=== PATIENT | male | born 1965 | race Caucasian/White ===

== ENCOUNTER 2017-09-10 19:16 | Inpatient (IN) ==
[2017-09-10] MEDS ORDERED: ALBUTEROL/IPRATROPIUM 3 ML NEB RESP TX STA (19:51)
[2017-09-10 21:02] LABS: Basophils # 0.1 10*3/uL (0.0-0.2); Basophils % 0.4 % (0.0-0.8); Eosinophils % 0.3 % (0.00-10.9); Hematocrit 36.2 VOL% (42.0-52.0); Hemoglobin 12.1 GM/DL (14.0-18.0); Immature Granulocytes Absolute 0.15 #; Lymphocytes # 1.5 10*3/uL (1.4-4.0); Lymphocytes % 9.5 % (21.2-54.2); Mean Corpuscular HGB Conc 33.4 GM/DL (32-36); Mean Corpuscular Hemoglobin 30 PG (27-34); Mean Corpuscular Volume 89.2 FL (87-102); Monocytes # 1.1 10*3/uL (0.11-0.8); Monocytes % 6.8 % (1.7-12.7); Neutrophils # 12.8 10*3/uL (1.4-7.4); Platelet Count 322 T/CUMM (130-400); Red Blood Count 4.06 MC/CUMM (3.8-5.5); Red Cell Distribution Width 16.9 % (9.3-17.3); White Blood Count 15.6 T/CUMM (4-12)
[2017-09-10] MEDS ORDERED: CLINDAMYCIN INJ 900 MG in PREMIX 1 EACH IV STA (22:01)
[2017-09-10] MEDS ORDERED: PHYTONADIONE 10 MG/1 ML AMP IV STA (22:23)
[2017-09-10 22:35] LABS: Alanine Aminotransferase 33 U/L (16-61); Albumin 2.7 G/DL (3.4-5.0); Alkaline Phosphatase 121 U/L (45-117); Aspartate Amino Transferase 57 U/L (0-37); Blood Urea Nitrogen 64 MG/DL (7-18); Calcium 7.4 MG/DL (8.5-10.1); Glucose 240 MG/DL (74-106); Osmolality,Calculated 285.8 MOS/KG (273-304); Potassium 4.3 MMOL/L (3.5-5.1); Sodium 130 MMOL/L (136-145); Total Protein 7.6 G/DL (6.4-8.3); Troponin I Only < 0.015 NG/ML (0.00-0.045)
[2017-09-10] MEDS ORDERED: PHYTONADIONE 10 MG/1 ML AMP ONE (23:01)
[2017-09-10] MEDS ORDERED: CLINDAMYCIN 600 MG/4 ML VIAL ONE (23:02)
[2017-09-10] MEDS ORDERED: CLINDAMYCIN INJ 50 ML IV ONE (23:35)
[2017-09-11] MEDS ORDERED: ALBUTEROL/IPRATROPIUM 3 ML NEB RESP TX PRN (01:30)
[2017-09-11] MEDS ORDERED: GLUCAGON 1 MG VIAL IM PRN (01:36)
[2017-09-11] MEDS ORDERED: DEXTROSE 50% 25 GM/50 ML VIAL IV PRN (01:36)
[2017-09-11 03:52] LABS: Apearance,Urine CLOUDY (Clear); Bacteria,Urine Few /HPF (Few); Bilirubin,Urine Negative (Negative); Blood, Urine Large mg/dL (Negative); Glucose,Urine (UA) Negative (Negative); Ketones,Urine Negative (Negative); Mucus,Urine Few /LPF (Occasional); Nitrite,Urine Negative (Negative); Protein,Urine 100 MG/DL; RBC,Urine 611 /HPF (0-4); Squamous Epithelial Cell,Urine Occasional /HPF (0-10); Urine Color Amber (Yellow); Urine Specific Gravity 1.014 (1.001-1.035); WBC,Urine 1153 /HPF (0-6)
[2017-09-11 03:54] LABS: Basophils # 0.1 10*3/uL (0.0-0.2); Basophils % 0.4 % (0.0-0.8); Eosinophils # 0.1 10*3/uL (0.0-0.87); Eosinophils % 0.7 % (0.00-10.9); Hematocrit 34.1 VOL% (42.0-52.0); Hemoglobin 11.4 GM/DL (14.0-18.0); Immature Granulocytes % 0.8 %; Immature Granulocytes Absolute 0.12 #; Lymphocytes # 1.5 10*3/uL (1.4-4.0); Lymphocytes % 10.3 % (21.2-54.2); Mean Corpuscular HGB Conc 33.4 GM/DL (32-36); Mean Corpuscular Hemoglobin 30 PG (27-34); Mean Corpuscular Volume 88.6 FL (87-102); Mean Platelet Volume 10.2 FL (9.6-12.0); Monocytes % 6.4 % (1.7-12.7); Neutrophils # 12.2 10*3/uL (1.4-7.4); Neutrophils % 81.4 % (38.7-73.9); Platelet Count 293 T/CUMM (130-400); Red Blood Count 3.85 MC/CUMM (3.8-5.5); Red Cell Distribution Width 17.1 % (9.3-17.3); White Blood Count 14.9 T/CUMM (4-12)
[2017-09-11 04:17] LABS: PT Patient Result 30.6 SECS; Partial Thromboplastin Time 48.2 SECS (0-40)
[2017-09-11 04:20] LABS: Albumin 2.3 G/DL (3.4-5.0); Bilirubin,Total 0.9 MG/DL (0.2-1.0); Calcium 7.1 MG/DL (8.5-10.1); Osmolality,Calculated 283.8 MOS/KG (273-304); Potassium 4.2 MMOL/L (3.5-5.1); Total Protein 7.1 G/DL (6.4-8.3)
[2017-09-11] MEDS ORDERED: SODIUM BICARB INJ 150 MEQ in STERILE WATER INJ 1,000 ML IV SCH (06:30)
[2017-09-11] MEDS ORDERED: VANCOMYCIN INJ 2,500 MG in SODIUM CHLORIDE 0.9% 500 ML IV ONE (06:30)
[2017-09-11] MEDS ORDERED: INSULIN LISPRO 100 UNIT/ML ONE (08:10)
[2017-09-11] MEDS: INSULIN LISPRO 100 UNIT/ML SUBCUT SCH ×4 (08:13→20:49)
[2017-09-11] MEDS ORDERED: cefTRIAXone 1,000 MG VIAL ONE (09:52)
[2017-09-11] MEDS ORDERED: amLODIPine 5 MG TABLET ONE (09:52)
[2017-09-11] MEDS: cefTRIAXone 1,000 MG in SYRINGE 1 EACH IV SCH (10:02)
[2017-09-11] MEDS: amLODIPine 10 MG TABLET PO SCH (10:03)
[2017-09-11] MEDS: LIDOCAINE 5% PATCH TRANSDERM SCH (10:06)
[2017-09-11] MEDS ORDERED: VANCOMYCIN INJ 3,000 MG in SODIUM CHLORIDE 0.9% 500 ML IV PRN (11:50)
[2017-09-11] MEDS: TAMSULOSIN 0.4 MG CAPSULE PO SCH (20:49)
[2017-09-12 05:30] LABS: Basophils # 0.1 10*3/uL (0.0-0.2); Basophils % 0.7 % (0.0-0.8); Eosinophils # 0.1 10*3/uL (0.0-0.87); Eosinophils % 0.8 % (0.00-10.9); Hematocrit 33.5 VOL% (42.0-52.0); Hemoglobin 10.9 GM/DL (14.0-18.0); Immature Granulocytes % 0.9 %; Immature Granulocytes Absolute 0.08 #; Lymphocytes # 0.8 10*3/uL (1.4-4.0); Lymphocytes % 9.3 % (21.2-54.2); Mean Corpuscular HGB Conc 32.5 GM/DL (32-36); Mean Corpuscular Hemoglobin 30 PG (27-34); Mean Corpuscular Volume 90.5 FL (87-102); Mean Platelet Volume 10.3 FL (9.6-12.0); Monocytes # 0.7 10*3/uL (0.11-0.8); Monocytes % 8.2 % (1.7-12.7); Neutrophils # 7.1 10*3/uL (1.4-7.4); Neutrophils % 80.1 % (38.7-73.9); Platelet Count 255 T/CUMM (130-400); Red Cell Distribution Width 17.1 % (9.3-17.3); White Blood Count 8.8 T/CUMM (4-12)
[2017-09-12 06:17] LABS: Calcium 6.5 MG/DL (8.5-10.1); Osmolality,Calculated 295.1 MOS/KG (273-304); Potassium 4.1 MMOL/L (3.5-5.1)
[2017-09-12] MEDS ORDERED: VANCOMYCIN INJ 3,000 MG in SODIUM CHLORIDE 0.9% 500 ML IV ONE (09:00)
[2017-09-12] MEDS: amLODIPine 10 MG TABLET PO SCH (09:21)
[2017-09-12] MEDS: cefTRIAXone 1,000 MG in SYRINGE 1 EACH IV SCH (09:21)
[2017-09-12] MEDS: LIDOCAINE 5% PATCH TRANSDERM SCH (09:22)
[2017-09-12] MEDS: INSULIN LISPRO 100 UNIT/ML SUBCUT SCH ×4 (09:23→21:47)
[2017-09-12] MEDS ORDERED: SKIN HEALING OINT (AQUAPHOR) 50 GM TUBE TOP PRN (14:57)
[2017-09-12] MEDS: GENTAMICIN 0.1% CREAM 15 GM TUBE TOP SCH ×2 (14:58→20:49)
[2017-09-12] MEDS ORDERED: MEROPENEM 1,000 MG in SODIUM CHLORIDE 0.9% 100 ML IV SCH (15:00)
[2017-09-12] MEDS: TAMSULOSIN 0.4 MG CAPSULE PO SCH (20:36)
[2017-09-13 05:41] LABS: Calcium 6.9 MG/DL (8.5-10.1); Osmolality,Calculated 290.1 MOS/KG (273-304); Potassium 3.6 MMOL/L (3.5-5.1)
[2017-09-13 06:50] LABS: Basophils % 0.5 % (0.0-0.8); Eosinophils # 0.2 10*3/uL (0.0-0.87); Eosinophils % 2.5 % (0.00-10.9); Hematocrit 31.3 VOL% (42.0-52.0); Hemoglobin 10.7 GM/DL (14.0-18.0); Immature Granulocytes Absolute 0.15 #; Lymphocytes # 1.1 10*3/uL (1.4-4.0); Lymphocytes % 14.5 % (21.2-54.2); Mean Corpuscular HGB Conc 34.2 GM/DL (32-36); Mean Corpuscular Hemoglobin 30 PG (27-34); Mean Corpuscular Volume 88.2 FL (87-102); Monocytes # 1.1 10*3/uL (0.11-0.8); Monocytes % 13.9 % (1.7-12.7); Neutrophils % 66.6 % (38.7-73.9); Platelet Count 256 T/CUMM (130-400); Red Blood Count 3.55 MC/CUMM (3.8-5.5); Red Cell Distribution Width 16.9 % (9.3-17.3); White Blood Count 7.5 T/CUMM (4-12)
[2017-09-13] MEDS: amLODIPine 10 MG TABLET PO SCH (09:18)
[2017-09-13] MEDS: LIDOCAINE 5% PATCH TRANSDERM SCH (09:20)
[2017-09-13] MEDS: INSULIN LISPRO 100 UNIT/ML SUBCUT SCH ×4 (09:21→20:58)
[2017-09-13] MEDS: GENTAMICIN 0.1% CREAM 15 GM TUBE TOP SCH ×3 (09:28→20:57)
[2017-09-13] MEDS ORDERED: POLYETHYLENE GLYCOL POWDER 17 GM PACK PO PRN (10:32)
[2017-09-13] MEDS: cefTRIAXone 1,000 MG in SYRINGE 1 EACH IV SCH (10:44)
[2017-09-13] MEDS ORDERED: methylPREDNISolone 4 MG TABLET PO SCH (11:00)
[2017-09-13] MEDS: methylPREDNISolone 4 MG TABLET PO SCH ×3 (14:02→20:55)
[2017-09-13] MEDS: TAMSULOSIN 0.4 MG CAPSULE PO SCH (20:55)
[2017-09-14] MEDS: methylPREDNISolone 4 MG TABLET PO SCH ×4 (09:04→21:46)
[2017-09-14] MEDS: amLODIPine 10 MG TABLET PO SCH (09:05)
[2017-09-14] MEDS: glipiZIDE 5 MG TABLET PO SCH (09:05)
[2017-09-14] MEDS: cefTRIAXone 1,000 MG in SYRINGE 1 EACH IV SCH (09:05)
[2017-09-14] MEDS: GENTAMICIN 0.1% CREAM 15 GM TUBE TOP SCH ×3 (09:06→21:48)
[2017-09-14] MEDS: INSULIN LISPRO 100 UNIT/ML SUBCUT SCH ×4 (09:06→21:46)
[2017-09-14] MEDS: LIDOCAINE 5% PATCH TRANSDERM SCH (09:06)
[2017-09-14] MEDS ORDERED: VANCOMYCIN INJ 3,000 MG in SODIUM CHLORIDE 0.9% 500 ML IV ONE (10:00)
[2017-09-14 13:19] LABS: Calcium 7.4 MG/DL (8.5-10.1); Osmolality,Calculated 291.1 MOS/KG (273-304)
[2017-09-14] MEDS: TAMSULOSIN 0.4 MG CAPSULE PO SCH (21:45)
[2017-09-15 04:57] LABS: Apearance,Urine CLEAR (Clear); Bilirubin,Urine Negative (Negative); Blood, Urine Small mg/dL (Negative); Glucose,Urine (UA) >=500 mg/dL (Negative); Ketones,Urine Negative (Negative); Nitrite,Urine Negative (Negative); Protein,Urine Negative; RBC,Urine 2 /HPF (0-4); Urine Color Straw (Yellow); Urine Specific Gravity 1.007 (1.001-1.035); Urine Urobilinogen < 2.0 EU/DL (0.2-1.0); WBC,Urine 6 /HPF (0-6)
[2017-09-15 05:18] LABS: Basophils % 0.5 % (0.0-0.8); Eosinophils % 0.1 % (0.00-10.9); Hematocrit 34.5 VOL% (42.0-52.0); Hemoglobin 11.3 GM/DL (14.0-18.0); Immature Granulocytes % 1.5 %; Immature Granulocytes Absolute 0.12 #; Lymphocytes # 0.8 10*3/uL (1.4-4.0); Lymphocytes % 10.5 % (21.2-54.2); Mean Corpuscular HGB Conc 32.8 GM/DL (32-36); Mean Corpuscular Hemoglobin 29 PG (27-34); Mean Corpuscular Volume 89.1 FL (87-102); Mean Platelet Volume 9.7 FL (9.6-12.0); Monocytes # 0.4 10*3/uL (0.11-0.8); Monocytes % 5.5 % (1.7-12.7); Neutrophils # 6.3 10*3/uL (1.4-7.4); Neutrophils % 81.9 % (38.7-73.9); Platelet Count 314 T/CUMM (130-400); Red Blood Count 3.87 MC/CUMM (3.8-5.5); Red Cell Distribution Width 15.9 % (9.3-17.3); White Blood Count 7.8 T/CUMM (4-12)
[2017-09-15 05:49] LABS: Calcium 7.6 MG/DL (8.5-10.1); Osmolality,Calculated 292.1 MOS/KG (273-304); Potassium 4.5 MMOL/L (3.5-5.1)
[2017-09-15] MEDS: methylPREDNISolone 4 MG TABLET PO SCH ×4 (09:10→20:18)
[2017-09-15] MEDS: glipiZIDE 5 MG TABLET PO SCH (09:10)
[2017-09-15] MEDS: amLODIPine 10 MG TABLET PO SCH (09:10)
[2017-09-15] MEDS: INSULIN LISPRO 100 UNIT/ML SUBCUT SCH ×4 (09:11→20:19)
[2017-09-15] MEDS: LIDOCAINE 5% PATCH TRANSDERM SCH (09:11)
[2017-09-15] MEDS: cefTRIAXone 1,000 MG in SYRINGE 1 EACH IV SCH (09:11)
[2017-09-15] MEDS: GENTAMICIN 0.1% CREAM 15 GM TUBE TOP SCH ×3 (09:36→20:29)
[2017-09-15] MEDS: ONDANSETRON 4 MG/2 ML VIAL IV PRN (20:17)
[2017-09-15] MEDS: TAMSULOSIN 0.4 MG CAPSULE PO SCH (20:19)
[2017-09-16] MEDS: amLODIPine 10 MG TABLET PO SCH (09:23)
[2017-09-16] MEDS: methylPREDNISolone 4 MG TABLET PO SCH ×3 (09:23→21:59)
[2017-09-16] MEDS: GENTAMICIN 0.1% CREAM 15 GM TUBE TOP SCH (09:24)
[2017-09-16] MEDS: LIDOCAINE 5% PATCH TRANSDERM SCH (09:24)
[2017-09-16] MEDS: cefTRIAXone 1,000 MG in SYRINGE 1 EACH IV SCH (09:24)
[2017-09-16 10:27] LABS: INR 1.1; PT Patient Result 11.9 SECS
[2017-09-16] MEDS: INSULIN LISPRO 100 UNIT/ML SUBCUT SCH ×4 (10:56→20:30)
[2017-09-16] MEDS: glipiZIDE 5 MG TABLET PO SCH (11:42)
[2017-09-16] MEDS: ONDANSETRON 4 MG/2 ML VIAL IV PRN ×2 (12:20→17:07)
[2017-09-16] MEDS: hydrALAZINE 20 MG/1 ML VIAL IV PRN (17:17)
[2017-09-16] MEDS: PROMETHAZINE 25 MG/1 ML VIAL IM PRN (21:14)
[2017-09-16] MEDS: WARFARIN 10 MG TABLET PO SCH (21:59)
[2017-09-16] MEDS: TAMSULOSIN 0.4 MG CAPSULE PO SCH (21:59)
[2017-09-17] MEDS: hydrALAZINE 20 MG/1 ML VIAL IV PRN (04:53)
[2017-09-17 08:13] LABS: INR 1.1; PT Patient Result 11.7 SECS
[2017-09-17 08:30] LABS: Calcium 8.2 MG/DL (8.5-10.1); Osmolality,Calculated 285.8 MOS/KG (273-304); Potassium 4.8 MMOL/L (3.5-5.1)
[2017-09-17] MEDS: glipiZIDE 5 MG TABLET PO SCH (08:37)
[2017-09-17] MEDS: amLODIPine 10 MG TABLET PO SCH (08:37)
[2017-09-17] MEDS: methylPREDNISolone 4 MG TABLET PO SCH ×2 (08:37→21:24)
[2017-09-17] MEDS: INSULIN LISPRO 100 UNIT/ML SUBCUT SCH ×4 (08:38→21:24)
[2017-09-17] MEDS: LIDOCAINE 5% PATCH TRANSDERM SCH (08:39)
[2017-09-17] MEDS: cefTRIAXone 1,000 MG in SYRINGE 1 EACH IV SCH (08:40)
[2017-09-17] MEDS: ONDANSETRON 4 MG/2 ML VIAL IV PRN (16:19)
[2017-09-17] MEDS: PROMETHAZINE 25 MG/1 ML VIAL IM PRN (17:21)
[2017-09-17] MEDS: WARFARIN 10 MG TABLET PO SCH (17:21)
[2017-09-17] MEDS: TAMSULOSIN 0.4 MG CAPSULE PO SCH (21:24)
[2017-09-18 06:26] LABS: INR 1.2; PT Patient Result 12.7 SECS
[2017-09-18 06:49] LABS: Calcium 8.3 MG/DL (8.5-10.1); Osmolality,Calculated 284.8 MOS/KG (273-304)
[2017-09-18] MEDS: INSULIN LISPRO 100 UNIT/ML SUBCUT SCH ×3 (07:24→17:26)
[2017-09-18] MEDS: methylPREDNISolone 4 MG TABLET PO SCH (08:31)
[2017-09-18] MEDS: amLODIPine 10 MG TABLET PO SCH (08:32)
[2017-09-18] MEDS: glipiZIDE 5 MG TABLET PO SCH (08:32)
[2017-09-18] MEDS: LIDOCAINE 5% PATCH TRANSDERM SCH (08:33)
[2017-09-18] MEDS: cefTRIAXone 1,000 MG in SYRINGE 1 EACH IV SCH (08:34)
[2017-09-18] MEDS: ONDANSETRON 4 MG/2 ML VIAL IV PRN (09:48)
[2017-09-18 15:57] VITALS: BP 160/85
[2017-09-18] MEDS: WARFARIN 10 MG TABLET PO SCH (17:25)
== END 2017-09-18 19:30 | disposition home health service (06) | DRG 682 ==
LOC: N.ED 19:16 → N.EDINP 09-11 01:24 → SUATTDRO 09-11 01:24 → N.EDINP 09-11 11:48 → N.2E 09-11 11:58
PROVIDERS: ADMIT Internal Medicine; ATTEND Internal Medicine

== ENCOUNTER 2019-02-22 14:00 | Inpatient (IN) ==
[2019-02-22] MEDS ORDERED: HYDROmorphone 2 MG/1 ML VIAL IV STA (14:46)
[2019-02-22] MEDS ORDERED: ONDANSETRON 4 MG/2 ML VIAL IV STA (14:46)
[2019-02-22 18:47] LABS: Basophils # 0.1 10*3/uL (0.0-0.2); Basophils % 0.2 % (0.0-0.8); Hemoglobin 8.4 GM/DL (14.0-18.0); Immature Granulocytes % 1.4 %; Immature Granulocytes Absolute 0.29 #; Lymphocytes # 1.7 10*3/uL (1.4-4.0); Lymphocytes % 8.3 % (21.2-54.2); Mean Corpuscular HGB Conc 33.6 GM/DL (32-36); Mean Corpuscular Volume 96.5 FL (87-102); Mean Platelet Volume 9.7 FL (9.6-12.0); Monocytes % 4.2 % (1.7-12.7); Neutrophils % 85.9 % (38.7-73.9); Platelet Count 462 T/CUMM (130-400); Red Blood Count 2.59 MC/CUMM (3.8-5.5); Red Cell Distribution Width 16.5 % (9.3-17.3); White Blood Count 20.4 T/CUMM (4-12)
[2019-02-22 19:06] LABS: Osmolality,Calculated 328.8 MOS/KG (273-304)
[2019-02-22 19:24] LABS: Partial Thromboplastin Time 71.1 SECS (0-40)
[2019-02-22 19:26] LABS: INR 6.4
[2019-02-22] MEDS ORDERED: SODIUM POLYSTYRENE SULFATE 15 GM/60 ML BOTTLE PO STA (19:27)
[2019-02-22] MEDS ORDERED: PHYTONADIONE 5 MG/5 ML ORAL.SYR PO STA (19:36)
[2019-02-22 21:05] LABS: Apearance,Urine CLOUDY (Clear); Bacteria,Urine Many /HPF (Few); Bilirubin,Urine Negative (Negative); Blood, Urine Large mg/dL (Negative); Glucose,Urine (UA) Negative (Negative); Ketones,Urine 5 mg/dL (Negative); Nitrite,Urine Negative (Negative); Protein,Urine >=500 MG/DL; RBC,Urine 2296 /HPF (0-4); Urine Specific Gravity 1.013 (1.001-1.035); Urine Urobilinogen < 2.0 EU/DL (0.2-1.0); WBC,Urine 301 /HPF (0-6)
[2019-02-22 21:06] LABS: Urine Color Brown (Yellow)
[2019-02-22] MEDS ORDERED: GABAPENTIN 300 MG CAPSULE PO SCH (21:31)
[2019-02-22] MEDS ORDERED: ONDANSETRON 4 MG/2 ML VIAL IM PRN (21:31)
[2019-02-22 21:45] LABS: Anisocytosis 1+; Hypochromasia 1+; Lymphocytes 3 % (20-55); Macrocytosis 1+; Metamyelocytes 1 %; Microcytosis 1+; Segmented Neutrophils 89 % (50-85); Total Cells Counted 100
[2019-02-22 21:46] LABS: Platelet Estimate Increased; Polychromasia 1+
[2019-02-22] MEDS: TAMSULOSIN 0.4 MG CAPSULE PO SCH (21:46)
[2019-02-22] MEDS: FUROSEMIDE 80 MG TABLET PO SCH (21:46)
[2019-02-22] MEDS: SODIUM BICARBONATE 650 MG TABLET PO SCH (21:46)
[2019-02-22] MEDS: MORPHINE 4 MG/1 ML VIAL IV PRN (23:59)
[2019-02-23] MEDS: GENTAMICIN 0.1% CREAM 15 GM TUBE TOP SCH ×4 (00:03→22:05)
[2019-02-23 05:00] LABS: INR 3.7
[2019-02-23 05:05] LABS: PT Patient Result 39.3 SECS
[2019-02-23 05:08] LABS: Basophils # 0.1 10*3/uL (0.0-0.2); Basophils % 0.5 % (0.0-0.8); Eosinophils # 0.1 10*3/uL (0.0-0.87); Eosinophils % 0.6 % (0.00-10.9); Hematocrit 23.7 VOL% (42.0-52.0); Hemoglobin 7.7 GM/DL (14.0-18.0); Immature Granulocytes % 1.6 %; Immature Granulocytes Absolute 0.26 #; Lymphocytes # 2.6 10*3/uL (1.4-4.0); Lymphocytes % 16.3 % (21.2-54.2); Mean Corpuscular HGB Conc 32.5 GM/DL (32-36); Mean Corpuscular Volume 97.1 FL (87-102); Mean Platelet Volume 9.7 FL (9.6-12.0); Monocytes % 6.3 % (1.7-12.7); Neutrophils % 74.7 % (38.7-73.9); Platelet Count 411 T/CUMM (130-400); Red Blood Count 2.44 MC/CUMM (3.8-5.5); Red Cell Distribution Width 16.5 % (9.3-17.3)
[2019-02-23 05:11] LABS: Calcium 7.7 MG/DL (8.5-10.1); Osmolality,Calculated 332.7 MOS/KG (273-304)
[2019-02-23] MEDS: SODIUM BICARBONATE 650 MG TABLET PO SCH ×3 (05:49→22:08)
[2019-02-23] MEDS: MORPHINE 4 MG/1 ML VIAL IV PRN ×2 (05:53→14:41)
[2019-02-23] MEDS ORDERED: PHYTONADIONE 5 MG/5 ML ORAL.SYR PO ONE (09:00)
[2019-02-23] MEDS: FUROSEMIDE 80 MG TABLET PO SCH ×2 (10:37→22:05)
[2019-02-23] MEDS ORDERED: LEVOFLOXACIN INJ 500 MG in PREMIX 1 EACH IV ONE (11:19)
[2019-02-23 11:55] LABS: Hepatitis B Core IgM Quant 0.06 Index; Hepatitis B Surface Ag Quant < 0.10 Index; Hepatitis B Surface Ag Result Negative (Negative); Hepatitis C Virus Ab Quant 0.02 Index; Hepatitis C Virus Ab Result Negative (Negative)
[2019-02-23] MEDS: SODIUM BICARB INJ 150 MEQ in STERILE WATER INJ 1,000 ML IV SCH ×2 (14:48→23:58)
[2019-02-23 17:10] LABS: Hematocrit 21.1 VOL% (42.0-52.0)
[2019-02-23] MEDS: DESITIN 4OZ/NYSTATIN 15 GRAM MIXTURE PASTE TOP SCH ×2 (18:54→22:05)
[2019-02-23] MEDS: GABAPENTIN 300 MG CAPSULE PO SCH (22:04)
[2019-02-23] MEDS: TAMSULOSIN 0.4 MG CAPSULE PO SCH (22:04)
[2019-02-23] MEDS: MORPHINE NALTREXONE PO SCH (22:04)
[2019-02-24] MEDS: MORPHINE 4 MG/1 ML VIAL IV PRN ×4 (01:00→21:10)
[2019-02-24] MEDS: SODIUM BICARBONATE 650 MG TABLET PO SCH ×3 (05:00→21:10)
[2019-02-24 05:38] LABS: Basophils # 0.1 10*3/uL (0.0-0.2); Basophils % 0.5 % (0.0-0.8); Eosinophils # 0.2 10*3/uL (0.0-0.87); Eosinophils % 1.3 % (0.00-10.9); Hematocrit 21.7 VOL% (42.0-52.0); Hemoglobin 7.1 GM/DL (14.0-18.0); Immature Granulocytes % 1.8 %; Immature Granulocytes Absolute 0.27 #; Lymphocytes # 2.7 10*3/uL (1.4-4.0); Lymphocytes % 17.8 % (21.2-54.2); Mean Corpuscular HGB Conc 32.7 GM/DL (32-36); Mean Platelet Volume 9.6 FL (9.6-12.0); Monocytes % 6.3 % (1.7-12.7); Neutrophils % 72.3 % (38.7-73.9); Platelet Count 394 T/CUMM (130-400); Red Blood Count 2.26 MC/CUMM (3.8-5.5); Red Cell Distribution Width 16.4 % (9.3-17.3); White Blood Count 14.9 T/CUMM (4-12)
[2019-02-24 06:16] LABS: Albumin 2.2 G/DL (3.4-5.0); Bilirubin,Total 1.8 MG/DL (0.2-1.0); Calcium 6.8 MG/DL (8.5-10.1); Osmolality,Calculated 325.5 MOS/KG (273-304); Total Protein 7.7 G/DL (6.4-8.3)
[2019-02-24 08:12] LABS: Hematocrit 20.3 VOL% (42.0-52.0); Hemoglobin 6.7 GM/DL (14.0-18.0)
[2019-02-24] MEDS ORDERED: SODIUM CHLORIDE 0.9% 1,000 ML IV PRN (08:38)
[2019-02-24] MEDS: FUROSEMIDE 80 MG TABLET PO SCH ×2 (09:13→21:10)
[2019-02-24] MEDS: GENTAMICIN 0.1% CREAM 15 GM TUBE TOP SCH ×3 (09:33→21:18)
[2019-02-24] MEDS: DESITIN 4OZ/NYSTATIN 15 GRAM MIXTURE PASTE TOP SCH ×2 (09:33→21:17)
[2019-02-24 09:48] LABS: INR 1.1; PT Patient Result 12.3 SECS
[2019-02-24] MEDS ORDERED: ceFAZolin 1,000 MG in SYRINGE 1 EACH IV ONE (10:07)
[2019-02-24] MEDS ORDERED: HEPARIN 5,000 UNIT/1 ML VIAL ONE (12:05)
[2019-02-24] MEDS ORDERED: LIDOCAINE MPF 1% /EPI 30 ML VIAL ONE (12:05)
[2019-02-24] MEDS ORDERED: BUPIVACAINE MPF 0.25% /EPI 30 ML VIAL ONE (12:05)
[2019-02-24] MEDS ORDERED: KETAMINE 500 MG/10 ML VIAL ONE (13:07)
[2019-02-24] MEDS ORDERED: MIDAZOLAM 2 MG/2 ML VIAL ONE (13:07)
[2019-02-24] MEDS ORDERED: HEPARIN 10,000 UNIT/10 ML VIAL IV PRN (16:10)
[2019-02-24 16:22] LABS: Hematocrit 23.3 VOL% (42.0-52.0); Hemoglobin 7.7 GM/DL (14.0-18.0)
[2019-02-24] MEDS: SODIUM BICARB INJ 150 MEQ in STERILE WATER INJ 1,000 ML IV SCH (18:30)
[2019-02-24] MEDS: TAMSULOSIN 0.4 MG CAPSULE PO SCH (21:10)
[2019-02-24] MEDS: GABAPENTIN 300 MG CAPSULE PO SCH (21:10)
[2019-02-24] MEDS: MORPHINE NALTREXONE PO SCH (21:18)
[2019-02-25] MEDS: SODIUM BICARB INJ 150 MEQ in STERILE WATER INJ 1,000 ML IV SCH (03:22)
[2019-02-25 05:45] LABS: Basophils % 0.4 % (0.0-0.8); Eosinophils # 0.2 10*3/uL (0.0-0.87); Eosinophils % 2.4 % (0.00-10.9); Hematocrit 22.9 VOL% (42.0-52.0); Hemoglobin 7.6 GM/DL (14.0-18.0); Immature Granulocytes % 2.5 %; Immature Granulocytes Absolute 0.23 #; Lymphocytes # 1.6 10*3/uL (1.4-4.0); Lymphocytes % 17.6 % (21.2-54.2); Mean Corpuscular HGB Conc 33.2 GM/DL (32-36); Mean Corpuscular Volume 95.4 FL (87-102); Mean Platelet Volume 9.4 FL (9.6-12.0); Monocytes % 6.6 % (1.7-12.7); Neutrophils % 70.5 % (38.7-73.9); Platelet Count 308 T/CUMM (130-400); Red Cell Distribution Width 16.8 % (9.3-17.3); White Blood Count 9.1 T/CUMM (4-12)
[2019-02-25] MEDS: SODIUM BICARBONATE 650 MG TABLET PO SCH (05:49)
[2019-02-25] MEDS: MORPHINE 4 MG/1 ML VIAL IV PRN ×5 (05:49→21:59)
[2019-02-25 05:53] LABS: PT Patient Result 11.1 SECS
[2019-02-25 06:22] LABS: Albumin 1.9 G/DL (3.4-5.0); Bilirubin,Total 0.6 MG/DL (0.2-1.0); Total Protein 7.1 G/DL (6.4-8.3)
[2019-02-25] MEDS: FUROSEMIDE 80 MG TABLET PO SCH ×2 (08:29→21:42)
[2019-02-25] MEDS: DESITIN 4OZ/NYSTATIN 15 GRAM MIXTURE PASTE TOP SCH ×2 (08:48→21:45)
[2019-02-25] MEDS: GENTAMICIN 0.1% CREAM 15 GM TUBE TOP SCH ×3 (08:48→21:45)
[2019-02-25] MEDS ORDERED: SODIUM CHLORIDE 0.9% 1,000 ML IV PRN (15:56)
[2019-02-25 17:47] LABS: Hematocrit 23.2 VOL% (42.0-52.0); Hemoglobin 7.7 GM/DL (14.0-18.0)
[2019-02-25] MEDS: GABAPENTIN 300 MG CAPSULE PO SCH (21:42)
[2019-02-25] MEDS: TAMSULOSIN 0.4 MG CAPSULE PO SCH (21:42)
[2019-02-25] MEDS: MORPHINE NALTREXONE PO SCH (21:45)
[2019-02-26] MEDS: MORPHINE 4 MG/1 ML VIAL IV PRN ×3 (05:46→20:15)
[2019-02-26 08:31] LABS: Basophils % 0.4 % (0.0-0.8); Eosinophils # 0.3 10*3/uL (0.0-0.87); Eosinophils % 3.2 % (0.00-10.9); Hematocrit 26.1 VOL% (42.0-52.0); Hemoglobin 8.6 GM/DL (14.0-18.0); Immature Granulocytes % 4.1 %; Immature Granulocytes Absolute 0.41 #; Lymphocytes # 1.7 10*3/uL (1.4-4.0); Lymphocytes % 16.4 % (21.2-54.2); Mean Corpuscular Volume 95.6 FL (87-102); Mean Platelet Volume 9.6 FL (9.6-12.0); Monocytes % 6.4 % (1.7-12.7); Neutrophils % 69.5 % (38.7-73.9); Platelet Count 306 T/CUMM (130-400); Red Blood Count 2.73 MC/CUMM (3.8-5.5); Red Cell Distribution Width 17.2 % (9.3-17.3); White Blood Count 10.1 T/CUMM (4-12)
[2019-02-26 08:40] LABS: PT Patient Result 10.7 SECS
[2019-02-26 08:51] LABS: Albumin 2.1 G/DL (3.4-5.0); Bilirubin,Total 0.6 MG/DL (0.2-1.0); Calcium 7.5 MG/DL (8.5-10.1); Total Protein 7.3 G/DL (6.4-8.3)
[2019-02-26] MEDS: FUROSEMIDE 80 MG TABLET PO SCH ×2 (09:00→20:11)
[2019-02-26] MEDS: GENTAMICIN 0.1% CREAM 15 GM TUBE TOP SCH ×3 (09:10→20:12)
[2019-02-26] MEDS: DESITIN 4OZ/NYSTATIN 15 GRAM MIXTURE PASTE TOP SCH ×2 (09:10→20:12)
[2019-02-26 12:25] LABS: Hematocrit 26.2 VOL% (42.0-52.0); Hemoglobin 8.3 GM/DL (14.0-18.0)
[2019-02-26] MEDS ORDERED: TUBERCULIN SKIN TEST 0.1 ML SYRINGE INTRADERM ONE (13:04)
[2019-02-26] MEDS: HEPARIN 5,000 UNIT/1 ML VIAL SUBCUT SCH ×2 (15:47→21:19)
[2019-02-26] MEDS: TAMSULOSIN 0.4 MG CAPSULE PO SCH (20:11)
[2019-02-26] MEDS: GABAPENTIN 300 MG CAPSULE PO SCH (20:11)
[2019-02-26] MEDS: MORPHINE NALTREXONE PO SCH (21:19)
[2019-02-27] MEDS: MORPHINE 4 MG/1 ML VIAL IV PRN ×6 (00:21→23:34)
[2019-02-27 05:35] LABS: Basophils # 0.1 10*3/uL (0.0-0.2); Basophils % 0.5 % (0.0-0.8); Eosinophils # 0.4 10*3/uL (0.0-0.87); Eosinophils % 4.2 % (0.00-10.9); Hematocrit 25.9 VOL% (42.0-52.0); Hemoglobin 8.2 GM/DL (14.0-18.0); Immature Granulocytes % 4.2 %; Immature Granulocytes Absolute 0.39 #; Lymphocytes # 1.9 10*3/uL (1.4-4.0); Lymphocytes % 20.7 % (21.2-54.2); Mean Corpuscular HGB Conc 31.7 GM/DL (32-36); Mean Corpuscular Volume 96.6 FL (87-102); Mean Platelet Volume 9.6 FL (9.6-12.0); Monocytes % 8.1 % (1.7-12.7); Neutrophils % 62.3 % (38.7-73.9); Platelet Count 292 T/CUMM (130-400); Red Blood Count 2.68 MC/CUMM (3.8-5.5); Red Cell Distribution Width 16.8 % (9.3-17.3); White Blood Count 9.2 T/CUMM (4-12)
[2019-02-27 05:37] LABS: INR 0.9; PT Patient Result 10.3 SECS
[2019-02-27] MEDS: HEPARIN 5,000 UNIT/1 ML VIAL SUBCUT SCH ×3 (06:02→21:22)
[2019-02-27 06:11] LABS: Albumin 1.9 G/DL (3.4-5.0); Bilirubin,Total 0.4 MG/DL (0.2-1.0); Calcium 7.9 MG/DL (8.5-10.1); Total Protein 6.9 G/DL (6.4-8.3)
[2019-02-27] MEDS: DESITIN 4OZ/NYSTATIN 15 GRAM MIXTURE PASTE TOP SCH ×2 (08:07→21:22)
[2019-02-27] MEDS: GENTAMICIN 0.1% CREAM 15 GM TUBE TOP SCH ×3 (08:07→21:22)
[2019-02-27] MEDS: FUROSEMIDE 80 MG TABLET PO SCH ×2 (08:07→21:20)
[2019-02-27] MEDS ORDERED: DEXTROSE 50% 25 GM/50 ML VIAL IV PRN (12:19)
[2019-02-27] MEDS ORDERED: GLUCAGON 1 MG VIAL IM PRN (12:19)
[2019-02-27] MEDS: METOPROLOL SUCCINATE XL 50 MG TABLET PO SCH (13:01)
[2019-02-27] MEDS: INSULIN LISPRO 100 UNIT/ML SUBCUT SCH ×2 (16:23→21:21)
[2019-02-27] MEDS: cefTRIAXone 2,000 MG in SYRINGE 1 EACH IV SCH (17:09)
[2019-02-27] MEDS: TAMSULOSIN 0.4 MG CAPSULE PO SCH (21:21)
[2019-02-27] MEDS: MORPHINE NALTREXONE PO SCH (21:23)
[2019-02-27] MEDS: GABAPENTIN 300 MG CAPSULE PO SCH (21:23)
[2019-02-28] MEDS: MORPHINE 4 MG/1 ML VIAL IV PRN ×4 (04:28→19:55)
[2019-02-28] MEDS: HEPARIN 5,000 UNIT/1 ML VIAL SUBCUT SCH ×3 (04:32→21:09)
[2019-02-28 05:12] LABS: INR 0.9; PT Patient Result 9.8 SECS
[2019-02-28 05:17] LABS: Osmolality,Calculated 292.2 MOS/KG (273-304)
[2019-02-28] MEDS: INSULIN LISPRO 100 UNIT/ML SUBCUT SCH ×4 (08:21→21:09)
[2019-02-28] MEDS: FUROSEMIDE 80 MG TABLET PO SCH (08:21)
[2019-02-28] MEDS: METOPROLOL SUCCINATE XL 50 MG TABLET PO SCH (08:22)
[2019-02-28] MEDS: GENTAMICIN 0.1% CREAM 15 GM TUBE TOP SCH ×3 (08:23→21:08)
[2019-02-28] MEDS: DESITIN 4OZ/NYSTATIN 15 GRAM MIXTURE PASTE TOP SCH ×2 (08:23→21:08)
[2019-02-28] MEDS ORDERED: SODIUM CHLORIDE 0.9% 1,000 ML IV SCH (11:00)
[2019-02-28] MEDS: cefTRIAXone 2,000 MG in SYRINGE 1 EACH IV SCH (17:04)
[2019-02-28] MEDS: GABAPENTIN 300 MG CAPSULE PO SCH (21:07)
[2019-02-28] MEDS: MORPHINE NALTREXONE PO SCH (21:08)
[2019-02-28] MEDS: TAMSULOSIN 0.4 MG CAPSULE PO SCH (21:09)
[2019-02-28] MEDS: INSULIN GLARGINE 100 UNIT/ML SUBCUT SCH (21:10)
[2019-03-01] MEDS: MORPHINE 4 MG/1 ML VIAL IV PRN ×5 (00:06→22:13)
[2019-03-01] MEDS: HEPARIN 5,000 UNIT/1 ML VIAL SUBCUT SCH ×3 (04:48→22:24)
[2019-03-01 05:43] LABS: PT Patient Result 10.4 SECS
[2019-03-01 05:55] LABS: Calcium 8.2 MG/DL (8.5-10.1); Osmolality,Calculated 289.7 MOS/KG (273-304)
[2019-03-01] MEDS: METOPROLOL SUCCINATE XL 50 MG TABLET PO SCH (08:44)
[2019-03-01] MEDS: INSULIN LISPRO 100 UNIT/ML SUBCUT SCH ×4 (08:44→22:23)
[2019-03-01] MEDS: GENTAMICIN 0.1% CREAM 15 GM TUBE TOP SCH ×3 (08:48→22:24)
[2019-03-01] MEDS: DESITIN 4OZ/NYSTATIN 15 GRAM MIXTURE PASTE TOP SCH ×2 (08:48→22:21)
[2019-03-01] MEDS ORDERED: ALTEPLASE 2 MG VIAL IV ONE (12:30)
[2019-03-01] MEDS ORDERED: CLINDAMYCIN INJ 900 MG in PREMIX 1 EACH IV ONE (14:52)
[2019-03-01] MEDS ORDERED: BUPIVACAINE MPF 0.25% /EPI 30 ML VIAL ONE (15:04)
[2019-03-01] MEDS ORDERED: LIDOCAINE 1% 20 ML VIAL ONE (15:04)
[2019-03-01] MEDS ORDERED: HEPARIN 5,000 UNIT/1 ML VIAL ONE (15:04)
[2019-03-01] MEDS ORDERED: MIDAZOLAM 2 MG/2 ML VIAL ONE (16:48)
[2019-03-01] MEDS ORDERED: KETAMINE 500 MG/10 ML VIAL ONE (16:49)
[2019-03-01] MEDS ORDERED: ETOMIDATE 40 MG/20 ML VIAL IV ONE (16:49)
[2019-03-01] MEDS: cefTRIAXone 2,000 MG in SYRINGE 1 EACH IV SCH (17:37)
[2019-03-01] MEDS: TAMSULOSIN 0.4 MG CAPSULE PO SCH (22:20)
[2019-03-01] MEDS: INSULIN GLARGINE 100 UNIT/ML SUBCUT SCH (22:21)
[2019-03-01] MEDS: MORPHINE NALTREXONE PO SCH (22:21)
[2019-03-01] MEDS: GABAPENTIN 300 MG CAPSULE PO SCH (22:25)
[2019-03-02] MEDS: HEPARIN 5,000 UNIT/1 ML VIAL SUBCUT SCH ×3 (05:38→22:22)
[2019-03-02 06:38] LABS: Calcium 8.2 MG/DL (8.5-10.1); Osmolality,Calculated 287.4 MOS/KG (273-304)
[2019-03-02] MEDS ORDERED: DEXTROSE 50% 25 GM/50 ML VIAL IV PRN (08:35)
[2019-03-02] MEDS ORDERED: GLUCAGON 1 MG VIAL IM PRN (08:35)
[2019-03-02] MEDS: INSULIN LISPRO 100 UNIT/ML SUBCUT SCH ×4 (09:06→22:21)
[2019-03-02] MEDS: METOPROLOL SUCCINATE XL 50 MG TABLET PO SCH (09:06)
[2019-03-02] MEDS: DESITIN 4OZ/NYSTATIN 15 GRAM MIXTURE PASTE TOP SCH ×2 (09:07→22:22)
[2019-03-02] MEDS: GENTAMICIN 0.1% CREAM 15 GM TUBE TOP SCH ×3 (09:07→22:21)
[2019-03-02] MEDS: MORPHINE 4 MG/1 ML VIAL IV PRN ×3 (09:36→22:28)
[2019-03-02] MEDS: cefTRIAXone 2,000 MG in SYRINGE 1 EACH IV SCH (16:27)
[2019-03-02] MEDS: GABAPENTIN 300 MG CAPSULE PO SCH (22:16)
[2019-03-02] MEDS: TAMSULOSIN 0.4 MG CAPSULE PO SCH (22:16)
[2019-03-02] MEDS: INSULIN GLARGINE 100 UNIT/ML SUBCUT SCH (22:20)
[2019-03-02] MEDS: MORPHINE NALTREXONE PO SCH (22:21)
[2019-03-03] MEDS: HEPARIN 5,000 UNIT/1 ML VIAL SUBCUT SCH ×3 (06:17→21:54)
[2019-03-03] MEDS: MORPHINE 4 MG/1 ML VIAL IV PRN ×4 (06:22→22:59)
[2019-03-03 06:38] LABS: Calcium 8.4 MG/DL (8.5-10.1); Osmolality,Calculated 295.1 MOS/KG (273-304)
[2019-03-03] MEDS: DESITIN 4OZ/NYSTATIN 15 GRAM MIXTURE PASTE TOP SCH ×2 (09:00→21:53)
[2019-03-03] MEDS: GENTAMICIN 0.1% CREAM 15 GM TUBE TOP SCH ×3 (09:00→21:53)
[2019-03-03] MEDS: INSULIN LISPRO 100 UNIT/ML SUBCUT SCH ×4 (09:10→21:55)
[2019-03-03] MEDS ORDERED: ALTEPLASE 2 MG VIAL IV PRN ×2 (14:05→15:00)
[2019-03-03] MEDS: METOPROLOL SUCCINATE XL 50 MG TABLET PO SCH (17:34)
[2019-03-03] MEDS: cefTRIAXone 2,000 MG in SYRINGE 1 EACH IV SCH (17:35)
[2019-03-03] MEDS: MORPHINE NALTREXONE PO SCH (21:53)
[2019-03-03] MEDS: INSULIN GLARGINE 100 UNIT/ML SUBCUT SCH (21:54)
[2019-03-03] MEDS: GABAPENTIN 300 MG CAPSULE PO SCH (21:54)
[2019-03-03] MEDS: TAMSULOSIN 0.4 MG CAPSULE PO SCH (21:54)
[2019-03-04] MEDS: MORPHINE 4 MG/1 ML VIAL IV PRN ×4 (05:21→19:59)
[2019-03-04] MEDS: HEPARIN 5,000 UNIT/1 ML VIAL SUBCUT SCH (05:22)
[2019-03-04] MEDS: INSULIN LISPRO 100 UNIT/ML SUBCUT SCH ×4 (08:52→21:20)
[2019-03-04] MEDS: METOPROLOL SUCCINATE XL 50 MG TABLET PO SCH (08:54)
[2019-03-04 09:24] LABS: Basophils % 0.4 % (0.0-0.8); Eosinophils # 0.5 10*3/uL (0.0-0.87); Eosinophils % 5.7 % (0.00-10.9); Hematocrit 25.4 VOL% (42.0-52.0); Immature Granulocytes % 1.5 %; Immature Granulocytes Absolute 0.13 #; Lymphocytes # 1.5 10*3/uL (1.4-4.0); Lymphocytes % 17.1 % (21.2-54.2); Mean Corpuscular HGB Conc 31.5 GM/DL (32-36); Mean Corpuscular Volume 100.8 FL (87-102); Mean Platelet Volume 10.3 FL (9.6-12.0); Monocytes % 8.6 % (1.7-12.7); Neutrophils % 66.7 % (38.7-73.9); Platelet Count 274 T/CUMM (130-400); Red Blood Count 2.52 MC/CUMM (3.8-5.5); Red Cell Distribution Width 16.5 % (9.3-17.3); White Blood Count 8.9 T/CUMM (4-12)
[2019-03-04] MEDS: DESITIN 4OZ/NYSTATIN 15 GRAM MIXTURE PASTE TOP SCH ×2 (09:36→21:21)
[2019-03-04] MEDS: GENTAMICIN 0.1% CREAM 15 GM TUBE TOP SCH ×3 (09:37→21:22)
[2019-03-04 09:50] LABS: Calcium 8.2 MG/DL (8.5-10.1)
[2019-03-04 11:16] LABS: INR 0.9; PT Patient Result 9.9 SECS; Partial Thromboplastin Time 25.9 SECS (0-40)
[2019-03-04] MEDS: HEPARIN DRIP 25,000 UNITS/500 ML PREMIX IV SCH ×2 (11:39→18:29)
[2019-03-04] MEDS: cefTRIAXone 2,000 MG in SYRINGE 1 EACH IV SCH (17:58)
[2019-03-04] MEDS: GABAPENTIN 300 MG CAPSULE PO SCH (21:20)
[2019-03-04] MEDS: INSULIN GLARGINE 100 UNIT/ML SUBCUT SCH (21:20)
[2019-03-04] MEDS: TAMSULOSIN 0.4 MG CAPSULE PO SCH (21:21)
[2019-03-04] MEDS: MORPHINE NALTREXONE PO SCH (21:21)
[2019-03-05] MEDS: HEPARIN DRIP 25,000 UNITS/500 ML PREMIX IV SCH ×4 (01:20→23:25)
[2019-03-05] MEDS: MORPHINE 4 MG/1 ML VIAL IV PRN ×5 (01:26→23:25)
[2019-03-05 06:01] LABS: Basophils # 0.1 10*3/uL (0.0-0.2); Basophils % 0.5 % (0.0-0.8); Eosinophils # 0.5 10*3/uL (0.0-0.87); Eosinophils % 5.5 % (0.00-10.9); Hematocrit 23.8 VOL% (42.0-52.0); Hemoglobin 7.4 GM/DL (14.0-18.0); Immature Granulocytes % 1.1 %; Immature Granulocytes Absolute 0.11 #; Lymphocytes # 1.7 10*3/uL (1.4-4.0); Mean Corpuscular HGB Conc 31.1 GM/DL (32-36); Mean Corpuscular Volume 100.4 FL (87-102); Mean Platelet Volume 9.7 FL (9.6-12.0); Monocytes % 7.8 % (1.7-12.7); Neutrophils % 67.1 % (38.7-73.9); Platelet Count 266 T/CUMM (130-400); Red Blood Count 2.37 MC/CUMM (3.8-5.5); White Blood Count 9.6 T/CUMM (4-12)
[2019-03-05 06:07] LABS: INR 0.9; PT Patient Result 10.2 SECS
[2019-03-05 06:14] LABS: Partial Thromboplastin Time 53.8 SECS (0-40)
[2019-03-05 06:15] LABS: Calcium 8.3 MG/DL (8.5-10.1)
[2019-03-05] MEDS: INSULIN LISPRO 100 UNIT/ML SUBCUT SCH ×4 (08:27→21:23)
[2019-03-05] MEDS: METOPROLOL SUCCINATE XL 50 MG TABLET PO SCH (08:28)
[2019-03-05] MEDS: DESITIN 4OZ/NYSTATIN 15 GRAM MIXTURE PASTE TOP SCH ×2 (08:31→21:25)
[2019-03-05] MEDS: GENTAMICIN 0.1% CREAM 15 GM TUBE TOP SCH ×3 (08:31→21:25)
[2019-03-05] MEDS: cefTRIAXone 2,000 MG in SYRINGE 1 EACH IV SCH (16:21)
[2019-03-05] MEDS: INSULIN GLARGINE 100 UNIT/ML SUBCUT SCH (21:23)
[2019-03-05] MEDS: TAMSULOSIN 0.4 MG CAPSULE PO SCH (21:24)
[2019-03-05] MEDS: GABAPENTIN 300 MG CAPSULE PO SCH (21:24)
[2019-03-05] MEDS: MORPHINE NALTREXONE PO SCH (21:25)
[2019-03-06] MEDS: MORPHINE 4 MG/1 ML VIAL IV PRN ×4 (05:56→20:45)
[2019-03-06] MEDS: HEPARIN DRIP 25,000 UNITS/500 ML PREMIX IV SCH ×3 (06:12→20:49)
[2019-03-06 06:47] LABS: Basophils # 0.1 10*3/uL (0.0-0.2); Basophils % 0.6 % (0.0-0.8); Eosinophils # 0.4 10*3/uL (0.0-0.87); Eosinophils % 4.9 % (0.00-10.9); Hematocrit 24.6 VOL% (42.0-52.0); Hemoglobin 7.6 GM/DL (14.0-18.0); Immature Granulocytes % 1.3 %; Immature Granulocytes Absolute 0.11 #; Lymphocytes # 1.4 10*3/uL (1.4-4.0); Lymphocytes % 16.8 % (21.2-54.2); Mean Corpuscular HGB Conc 30.9 GM/DL (32-36); Mean Corpuscular Volume 101.7 FL (87-102); Mean Platelet Volume 10.2 FL (9.6-12.0); Monocytes % 9.7 % (1.7-12.7); Neutrophils % 66.7 % (38.7-73.9); Platelet Count 257 T/CUMM (130-400); Red Blood Count 2.42 MC/CUMM (3.8-5.5); Red Cell Distribution Width 16.3 % (9.3-17.3); White Blood Count 8.4 T/CUMM (4-12)
[2019-03-06 06:54] LABS: PT Patient Result 10.7 SECS
[2019-03-06 06:57] LABS: Partial Thromboplastin Time 47.3 SECS (0-40)
[2019-03-06 07:16] LABS: Calcium 8.4 MG/DL (8.5-10.1); Osmolality,Calculated 292.7 MOS/KG (273-304)
[2019-03-06] MEDS: INSULIN LISPRO 100 UNIT/ML SUBCUT SCH ×4 (08:35→20:44)
[2019-03-06] MEDS: METOPROLOL SUCCINATE XL 50 MG TABLET PO SCH (08:36)
[2019-03-06] MEDS: GENTAMICIN 0.1% CREAM 15 GM TUBE TOP SCH ×3 (08:38→20:45)
[2019-03-06] MEDS: DESITIN 4OZ/NYSTATIN 15 GRAM MIXTURE PASTE TOP SCH ×2 (08:38→20:45)
[2019-03-06 10:22] LABS: PT Patient Result 10.5 SECS
[2019-03-06] MEDS: WARFARIN 5 MG TABLET PO SCH (17:12)
[2019-03-06] MEDS: INSULIN GLARGINE 100 UNIT/ML SUBCUT SCH (20:44)
[2019-03-06] MEDS: GABAPENTIN 300 MG CAPSULE PO SCH (20:44)
[2019-03-06] MEDS: TAMSULOSIN 0.4 MG CAPSULE PO SCH (20:44)
[2019-03-06] MEDS: MORPHINE NALTREXONE PO SCH (20:45)
[2019-03-07] MEDS: MORPHINE 4 MG/1 ML VIAL IV PRN ×5 (00:38→21:16)
[2019-03-07] MEDS: HEPARIN DRIP 25,000 UNITS/500 ML PREMIX IV SCH ×3 (03:57→17:34)
[2019-03-07 05:31] LABS: Basophils # 0.1 10*3/uL (0.0-0.2); Basophils % 0.6 % (0.0-0.8); Eosinophils # 0.4 10*3/uL (0.0-0.87); Eosinophils % 3.8 % (0.00-10.9); Hematocrit 24.1 VOL% (42.0-52.0); Hemoglobin 7.3 GM/DL (14.0-18.0); Immature Granulocytes % 1.2 %; Immature Granulocytes Absolute 0.11 #; Lymphocytes # 1.7 10*3/uL (1.4-4.0); Lymphocytes % 18.3 % (21.2-54.2); Mean Corpuscular HGB Conc 30.3 GM/DL (32-36); Mean Corpuscular Volume 102.1 FL (87-102); Mean Platelet Volume 9.8 FL (9.6-12.0); Monocytes % 6.8 % (1.7-12.7); Neutrophils % 69.3 % (38.7-73.9); Platelet Count 277 T/CUMM (130-400); Red Blood Count 2.36 MC/CUMM (3.8-5.5); Red Cell Distribution Width 16.2 % (9.3-17.3); White Blood Count 9.3 T/CUMM (4-12)
[2019-03-07 05:46] LABS: PT Patient Result 10.7 SECS
[2019-03-07 06:01] LABS: Partial Thromboplastin Time 43.9 SECS (0-40)
[2019-03-07 06:04] LABS: Calcium 8.8 MG/DL (8.5-10.1)
[2019-03-07] MEDS: METOPROLOL SUCCINATE XL 50 MG TABLET PO SCH (08:44)
[2019-03-07] MEDS: INSULIN LISPRO 100 UNIT/ML SUBCUT SCH ×4 (08:44→21:16)
[2019-03-07] MEDS: GENTAMICIN 0.1% CREAM 15 GM TUBE TOP SCH ×3 (08:46→21:16)
[2019-03-07] MEDS: DESITIN 4OZ/NYSTATIN 15 GRAM MIXTURE PASTE TOP SCH ×2 (08:46→21:16)
[2019-03-07] MEDS: WARFARIN 5 MG TABLET PO SCH (17:34)
[2019-03-07] MEDS: INSULIN GLARGINE 100 UNIT/ML SUBCUT SCH (21:15)
[2019-03-07] MEDS: MORPHINE NALTREXONE PO SCH (21:16)
[2019-03-07] MEDS: GABAPENTIN 300 MG CAPSULE PO SCH (21:16)
[2019-03-07] MEDS: TAMSULOSIN 0.4 MG CAPSULE PO SCH (21:16)
[2019-03-08] MEDS: HEPARIN DRIP 25,000 UNITS/500 ML PREMIX IV SCH ×4 (00:18→21:39)
[2019-03-08 01:11] LABS: PT Patient Result 10.7 SECS
[2019-03-08 01:14] LABS: Basophils # 0.1 10*3/uL (0.0-0.2); Basophils % 0.5 % (0.0-0.8); Eosinophils # 0.3 10*3/uL (0.0-0.87); Eosinophils % 3.1 % (0.00-10.9); Hematocrit 23.3 VOL% (42.0-52.0); Hemoglobin 7.2 GM/DL (14.0-18.0); Immature Granulocytes % 1.5 %; Immature Granulocytes Absolute 0.15 #; Lymphocytes # 1.4 10*3/uL (1.4-4.0); Lymphocytes % 14.5 % (21.2-54.2); Mean Corpuscular HGB Conc 30.9 GM/DL (32-36); Mean Corpuscular Volume 100.9 FL (87-102); Mean Platelet Volume 9.6 FL (9.6-12.0); Monocytes % 7.1 % (1.7-12.7); Neutrophils % 73.3 % (38.7-73.9); Platelet Count 288 T/CUMM (130-400); Red Blood Count 2.31 MC/CUMM (3.8-5.5); Red Cell Distribution Width 16.1 % (9.3-17.3); White Blood Count 9.9 T/CUMM (4-12)
[2019-03-08 01:17] LABS: Calcium 8.5 MG/DL (8.5-10.1)
[2019-03-08] MEDS: MORPHINE 4 MG/1 ML VIAL IV PRN ×4 (05:08→21:15)
[2019-03-08] MEDS: INSULIN LISPRO 100 UNIT/ML SUBCUT SCH ×4 (09:17→21:15)
[2019-03-08] MEDS: METOPROLOL SUCCINATE XL 50 MG TABLET PO SCH (09:17)
[2019-03-08] MEDS: DESITIN 4OZ/NYSTATIN 15 GRAM MIXTURE PASTE TOP SCH ×2 (09:22→21:38)
[2019-03-08] MEDS: GENTAMICIN 0.1% CREAM 15 GM TUBE TOP SCH ×3 (09:22→21:38)
[2019-03-08 13:40] LABS: Protein C Activity Plasma 61 % (70 - 150); Protein S Ag (Free) 82 % (65 - 160)
[2019-03-08 13:43] LABS: Protein S Activity Plasma 110 % (65 - 160)
[2019-03-08 14:00] LABS: Phospholipid Ab IgM, S < 9.4 MPL
[2019-03-08 14:01] LABS: Protein C Antigen 54 % (70-150)
[2019-03-08] MEDS: WARFARIN 5 MG TABLET PO SCH (18:24)
[2019-03-08] MEDS: TAMSULOSIN 0.4 MG CAPSULE PO SCH (21:12)
[2019-03-08] MEDS: GABAPENTIN 300 MG CAPSULE PO SCH (21:12)
[2019-03-08] MEDS: MORPHINE NALTREXONE PO SCH (21:12)
[2019-03-08] MEDS: INSULIN GLARGINE 100 UNIT/ML SUBCUT SCH (21:15)
[2019-03-09 01:14] LABS: INR 1.1; PT Patient Result 11.5 SECS
[2019-03-09] MEDS: MORPHINE 4 MG/1 ML VIAL IV PRN ×6 (01:16→21:30)
[2019-03-09] MEDS: HEPARIN DRIP 25,000 UNITS/500 ML PREMIX IV SCH ×2 (04:26→11:00)
[2019-03-09] MEDS: METOPROLOL SUCCINATE XL 50 MG TABLET PO SCH (09:18)
[2019-03-09] MEDS: INSULIN LISPRO 100 UNIT/ML SUBCUT SCH ×4 (09:18→21:30)
[2019-03-09] MEDS: DESITIN 4OZ/NYSTATIN 15 GRAM MIXTURE PASTE TOP SCH ×2 (09:22→21:33)
[2019-03-09] MEDS: GENTAMICIN 0.1% CREAM 15 GM TUBE TOP SCH ×3 (09:23→21:33)
[2019-03-09 12:16] LABS: Apearance,Urine Slightly Hazy (Clear); Bacteria,Urine Occasional /HPF (Few); Bilirubin,Urine Negative (Negative); Blood, Urine Large mg/dL (Negative); Glucose,Urine (UA) 150 mg/dL (Negative); Ketones,Urine Negative (Negative); Nitrite,Urine Negative (Negative); Protein,Urine 30 MG/DL; RBC,Urine 26 /HPF (0-4); Squamous Epithelial Cell,Urine Occasional /HPF (0-10); Urine Color Yellow (Yellow); Urine Specific Gravity 1.008 (1.001-1.035); Urine Urobilinogen < 2.0 EU/DL (0.2-1.0); WBC,Urine 275 /HPF (0-6)
[2019-03-09 12:49] LABS: Creatinine,Urine Random 56 MG/DL; Total Protein,Urine Random 82 MG/DL; Urea Nitrogen, Urine Random 221 MG/DL
[2019-03-09] MEDS: WARFARIN 5 MG TABLET PO SCH (19:11)
[2019-03-09] MEDS: TAMSULOSIN 0.4 MG CAPSULE PO SCH (21:29)
[2019-03-09] MEDS: GABAPENTIN 300 MG CAPSULE PO SCH (21:29)
[2019-03-09] MEDS: rOPINIRole 0.25 MG TABLET PO SCH (21:30)
[2019-03-09] MEDS: INSULIN GLARGINE 100 UNIT/ML SUBCUT SCH (21:30)
[2019-03-09] MEDS: MORPHINE NALTREXONE PO SCH (21:33)
[2019-03-10] MEDS: HEPARIN DRIP 25,000 UNITS/500 ML PREMIX IV SCH ×3 (00:34→17:14)
[2019-03-10 00:55] LABS: Basophils # 0.1 10*3/uL (0.0-0.2); Basophils % 0.7 % (0.0-0.8); Eosinophils # 0.3 10*3/uL (0.0-0.87); Eosinophils % 3.8 % (0.00-10.9); Hematocrit 25.7 VOL% (42.0-52.0); Hemoglobin 7.8 GM/DL (14.0-18.0); Immature Granulocytes % 5.9 %; Immature Granulocytes Absolute 0.49 #; Lymphocytes # 1.5 10*3/uL (1.4-4.0); Lymphocytes % 17.4 % (21.2-54.2); Mean Corpuscular HGB Conc 30.4 GM/DL (32-36); Mean Corpuscular Volume 102.8 FL (87-102); Mean Platelet Volume 9.3 FL (9.6-12.0); Monocytes % 7.3 % (1.7-12.7); Neutrophils % 64.9 % (38.7-73.9); Platelet Count 259 T/CUMM (130-400); Red Cell Distribution Width 16.8 % (9.3-17.3); White Blood Count 8.3 T/CUMM (4-12)
[2019-03-10 01:09] LABS: Calcium 8.4 MG/DL (8.5-10.1); Osmolality,Calculated 288.1 MOS/KG (273-304)
[2019-03-10 01:19] LABS: Band Neutrophils 7 % (0-10); Lymphocytes 19 % (20-55); Metamyelocytes 1 %; Myelocytes 3 %; Nucleated Red Blood Cells 1 (0-5); Segmented Neutrophils 66 % (50-85); Total Cells Counted 100
[2019-03-10 01:20] LABS: Anisocytosis 1+
[2019-03-10 01:21] LABS: Platelet Estimate Adequate; Polychromasia Slight
[2019-03-10 01:26] LABS: Albumin 2.1 G/DL (3.4-5.0); Calcium 8.1 MG/DL (8.5-10.1); Osmolality,Calculated 287.1 MOS/KG (273-304)
[2019-03-10] MEDS: MORPHINE 4 MG/1 ML VIAL IV PRN ×4 (01:30→20:50)
[2019-03-10] MEDS: INSULIN LISPRO 100 UNIT/ML SUBCUT SCH ×4 (08:46→22:16)
[2019-03-10] MEDS: GENTAMICIN 0.1% CREAM 15 GM TUBE TOP SCH ×3 (08:48→20:56)
[2019-03-10] MEDS: METOPROLOL SUCCINATE XL 50 MG TABLET PO SCH (08:48)
[2019-03-10] MEDS: rOPINIRole 0.25 MG TABLET PO SCH ×3 (08:48→20:53)
[2019-03-10] MEDS: DESITIN 4OZ/NYSTATIN 15 GRAM MIXTURE PASTE TOP SCH ×2 (08:48→20:56)
[2019-03-10 13:40] LABS: DRVVT Screen Ratio 1.3 ratio (0.0 - 1.1)
[2019-03-10] MEDS: WARFARIN 10 MG TABLET PO SCH (17:13)
[2019-03-10 19:35] LABS: INR 1.2
[2019-03-10] MEDS: TAMSULOSIN 0.4 MG CAPSULE PO SCH (20:53)
[2019-03-10] MEDS: GABAPENTIN 300 MG CAPSULE PO SCH (20:53)
[2019-03-10] MEDS: MORPHINE NALTREXONE PO SCH (21:59)
[2019-03-10] MEDS: INSULIN GLARGINE 100 UNIT/ML SUBCUT SCH (22:15)
[2019-03-11 02:39] LABS: Basophils # 0.1 10*3/uL (0.0-0.2); Basophils % 0.6 % (0.0-0.8); Eosinophils # 0.3 10*3/uL (0.0-0.87); Eosinophils % 2.9 % (0.00-10.9); Hematocrit 22.9 VOL% (42.0-52.0); Hemoglobin 7.1 GM/DL (14.0-18.0); Immature Granulocytes % 6.4 %; Immature Granulocytes Absolute 0.62 #; Lymphocytes # 1.5 10*3/uL (1.4-4.0); Lymphocytes % 15.9 % (21.2-54.2); Mean Corpuscular Volume 102.7 FL (87-102); Mean Platelet Volume 9.8 FL (9.6-12.0); Monocytes % 8.8 % (1.7-12.7); NRBC # 0.02 10*3/uL; Neutrophils % 65.4 % (38.7-73.9); Platelet Count 279 T/CUMM (130-400); Red Blood Count 2.23 MC/CUMM (3.8-5.5); Red Cell Distribution Width 16.8 % (9.3-17.3); White Blood Count 9.7 T/CUMM (4-12)
[2019-03-11 02:47] LABS: INR 1.3; PT Patient Result 13.8 SECS
[2019-03-11 02:51] LABS: Calcium 8.3 MG/DL (8.5-10.1)
[2019-03-11] MEDS ORDERED: HEPARIN 5,000 UNIT/1 ML VIAL IV ONE (03:21)
[2019-03-11 04:10] LABS: Band Neutrophils 1 % (0-10); Eosinophils 1 % (0-10); Lymphocytes 16 % (20-55); Metamyelocytes 2 %; Myelocytes 2 %; Nucleated Red Blood Cells 1 (0-5); Segmented Neutrophils 69 % (50-85); Total Cells Counted 100
[2019-03-11 04:11] LABS: Anisocytosis 1+; Macrocytosis Slight; Platelet Estimate Normal; Polychromasia Few
[2019-03-11] MEDS: MORPHINE 4 MG/1 ML VIAL IV PRN ×5 (04:15→21:49)
[2019-03-11] MEDS: INSULIN LISPRO 100 UNIT/ML SUBCUT SCH ×4 (08:58→21:40)
[2019-03-11] MEDS: DESITIN 4OZ/NYSTATIN 15 GRAM MIXTURE PASTE TOP SCH ×2 (08:58→22:02)
[2019-03-11] MEDS: rOPINIRole 0.25 MG TABLET PO SCH ×3 (08:58→21:39)
[2019-03-11] MEDS: METOPROLOL SUCCINATE XL 50 MG TABLET PO SCH (08:58)
[2019-03-11] MEDS: GENTAMICIN 0.1% CREAM 15 GM TUBE TOP SCH ×3 (08:58→22:02)
[2019-03-11] MEDS: HEPARIN DRIP 25,000 UNITS/500 ML PREMIX IV SCH ×3 (09:50→23:38)
[2019-03-11] MEDS: WARFARIN 10 MG TABLET PO SCH (17:07)
[2019-03-11] MEDS: INSULIN GLARGINE 100 UNIT/ML SUBCUT SCH (21:39)
[2019-03-11] MEDS: TAMSULOSIN 0.4 MG CAPSULE PO SCH (21:39)
[2019-03-11] MEDS: GABAPENTIN 300 MG CAPSULE PO SCH (21:39)
[2019-03-11] MEDS: MORPHINE NALTREXONE PO SCH (22:02)
[2019-03-12 05:12] LABS: Basophils # 0.1 10*3/uL (0.0-0.2); Basophils % 0.7 % (0.0-0.8); Eosinophils # 0.3 10*3/uL (0.0-0.87); Eosinophils % 2.5 % (0.00-10.9); Hematocrit 25.1 VOL% (42.0-52.0); Hemoglobin 7.6 GM/DL (14.0-18.0); Immature Granulocytes % 8.5 %; Immature Granulocytes Absolute 1.01 #; Lymphocytes # 1.6 10*3/uL (1.4-4.0); Lymphocytes % 13.2 % (21.2-54.2); Mean Corpuscular HGB Conc 30.3 GM/DL (32-36); Mean Corpuscular Volume 104.1 FL (87-102); Mean Platelet Volume 9.4 FL (9.6-12.0); Monocytes % 5.8 % (1.7-12.7); NRBC # 0.03 10*3/uL; Neutrophils % 69.3 % (38.7-73.9); Platelet Count 297 T/CUMM (130-400); Red Blood Count 2.41 MC/CUMM (3.8-5.5); Red Cell Distribution Width 17.2 % (9.3-17.3); White Blood Count 11.9 T/CUMM (4-12)
[2019-03-12 05:32] LABS: Band Neutrophils 4 % (0-10); Eosinophils 4 % (0-10); Hypochromasia 1+; Lymphocytes 11 % (20-55); Platelet Estimate Adequate; Segmented Neutrophils 76 % (50-85); Total Cells Counted 100
[2019-03-12 05:59] LABS: Calcium 8.7 MG/DL (8.5-10.1); Osmolality,Calculated 287.1 MOS/KG (273-304)
[2019-03-12] MEDS: HEPARIN DRIP 25,000 UNITS/500 ML PREMIX IV SCH ×3 (06:35→22:30)
[2019-03-12] MEDS: MORPHINE 4 MG/1 ML VIAL IV PRN ×3 (06:40→20:13)
[2019-03-12 07:45] LABS: INR 1.9
[2019-03-12] MEDS: INSULIN LISPRO 100 UNIT/ML SUBCUT SCH ×4 (08:26→20:14)
[2019-03-12 09:59] LABS: DRVVT Confirmation 0.9 ratio (0.0 - 1.1); DRVVT Mix Ratio (Mayo Reflex) 1.1 ratio (0.0 - 1.1); Thrombin Time (Bovine), P 22 sec (15 - 23)
[2019-03-12] MEDS ORDERED: EPOETIN ALFA 10,000 UNIT/1 ML VIAL IV ONE (10:45)
[2019-03-12] MEDS: METOPROLOL SUCCINATE XL 50 MG TABLET PO SCH (11:21)
[2019-03-12] MEDS: rOPINIRole 0.25 MG TABLET PO SCH ×3 (11:21→20:13)
[2019-03-12] MEDS: DESITIN 4OZ/NYSTATIN 15 GRAM MIXTURE PASTE TOP SCH ×2 (17:11→20:14)
[2019-03-12] MEDS ORDERED: WARFARIN 7.5 MG TABLET PO SCH (18:00)
[2019-03-12] MEDS: WARFARIN 7.5 MG TABLET PO SCH (18:11)
[2019-03-12 20:03] LABS: INR 2.3
[2019-03-12 20:04] LABS: PT Patient Result 24.4 SECS (9.6-12.2)
[2019-03-12] MEDS: GABAPENTIN 300 MG CAPSULE PO SCH (20:13)
[2019-03-12] MEDS: TAMSULOSIN 0.4 MG CAPSULE PO SCH (20:13)
[2019-03-12] MEDS: INSULIN GLARGINE 100 UNIT/ML SUBCUT SCH (20:14)
[2019-03-12] MEDS: GENTAMICIN 0.1% CREAM 15 GM TUBE TOP SCH (20:14)
[2019-03-12] MEDS: MORPHINE NALTREXONE PO SCH (22:30)
[2019-03-13] MEDS: GENTAMICIN 0.1% CREAM 15 GM TUBE TOP SCH ×4 (04:52→20:07)
[2019-03-13] MEDS: HEPARIN DRIP 25,000 UNITS/500 ML PREMIX IV SCH (05:02)
[2019-03-13 05:39] LABS: Basophils # 0.1 10*3/uL (0.0-0.2); Basophils % 0.6 % (0.0-0.8); Eosinophils # 0.3 10*3/uL (0.0-0.87); Eosinophils % 1.6 % (0.00-10.9); Hematocrit 22.8 VOL% (42.0-52.0); Hemoglobin 7.1 GM/DL (14.0-18.0); Immature Granulocytes % 13.1 %; Immature Granulocytes Absolute 2.02 #; Lymphocytes # 2.2 10*3/uL (1.4-4.0); Lymphocytes % 14.1 % (21.2-54.2); Mean Corpuscular HGB Conc 31.1 GM/DL (32-36); Mean Corpuscular Volume 103.6 FL (87-102); Mean Platelet Volume 9.2 FL (9.6-12.0); Monocytes % 7.1 % (1.7-12.7); NRBC # 0.06 10*3/uL; Neutrophils % 63.5 % (38.7-73.9); Platelet Count 314 T/CUMM (130-400); Red Cell Distribution Width 17.1 % (9.3-17.3); White Blood Count 15.4 T/CUMM (4-12)
[2019-03-13 06:07] LABS: % Iron Saturation 9.2 % (18-50)
[2019-03-13 06:25] LABS: Anisocytosis 1+; Band Neutrophils 2 % (0-10); Eosinophils 1 % (0-10); Lymphocytes 25 % (20-55); Metamyelocytes 7 %; Platelet Estimate Normal; Segmented Neutrophils 55 % (50-85); Total Cells Counted 100
[2019-03-13 06:30] LABS: Calcium 8.4 MG/DL (8.5-10.1); Osmolality,Calculated 283.4 MOS/KG (273-304)
[2019-03-13 06:37] LABS: Calcium 8.7 MG/DL (8.5-10.1); Osmolality,Calculated 287.2 MOS/KG (273-304)
[2019-03-13] MEDS ORDERED: cefTRIAXone 1,000 MG VIAL IM SCH (08:30)
[2019-03-13] MEDS ORDERED: cefTRIAXone 1,000 MG VIAL IV SCH (08:33)
[2019-03-13] MEDS: INSULIN LISPRO 100 UNIT/ML SUBCUT SCH ×4 (08:34→20:06)
[2019-03-13] MEDS: rOPINIRole 0.25 MG TABLET PO SCH ×3 (08:55→20:06)
[2019-03-13] MEDS: MORPHINE 4 MG/1 ML VIAL IV PRN ×3 (09:00→20:06)
[2019-03-13] MEDS ORDERED: cefTRIAXone 1,000 MG in SYRINGE 1 EACH IV SCH (09:00)
[2019-03-13] MEDS: METOPROLOL SUCCINATE XL 50 MG TABLET PO SCH (09:01)
[2019-03-13 09:26] LABS: INR 2.5; PT Patient Result 27.3 SECS (9.6-12.2)
[2019-03-13] MEDS: DESITIN 4OZ/NYSTATIN 15 GRAM MIXTURE PASTE TOP SCH ×2 (10:11→20:07)
[2019-03-13 11:01] LABS: Apearance,Urine CLOUDY (Clear); Bacteria,Urine Many /HPF (Few); Bilirubin,Urine Negative (Negative); Blood, Urine Large mg/dL (Negative); Glucose,Urine (UA) 50 mg/dL (Negative); Ketones,Urine Negative (Negative); Mucus,Urine Occasional /LPF (Occasional); Nitrite,Urine Negative (Negative); Protein,Urine 30 MG/DL; RBC,Urine 48 /HPF (0-4); Urine Specific Gravity 1.005 (1.001-1.035); Urine Urobilinogen < 2.0 EU/DL (0.2-1.0); WBC,Urine 1761 /HPF (0-6)
[2019-03-13 11:02] LABS: Urine Color Yellow (Yellow)
[2019-03-13] MEDS: MEROPENEM 500 MG in SODIUM CHLORIDE 0.9% 100 ML IV SCH (13:40)
[2019-03-13] MEDS: WARFARIN 7.5 MG TABLET PO SCH (17:36)
[2019-03-13] MEDS: GABAPENTIN 300 MG CAPSULE PO SCH (20:06)
[2019-03-13] MEDS: INSULIN GLARGINE 100 UNIT/ML SUBCUT SCH (20:07)
[2019-03-13] MEDS: TAMSULOSIN 0.4 MG CAPSULE PO SCH (23:06)
[2019-03-13] MEDS: MORPHINE NALTREXONE PO SCH (23:07)
[2019-03-14] MEDS: MEROPENEM 500 MG in SODIUM CHLORIDE 0.9% 100 ML IV SCH ×2 (00:45→13:50)
[2019-03-14] MEDS: MORPHINE 4 MG/1 ML VIAL IV PRN ×5 (03:16→20:43)
[2019-03-14 05:48] LABS: Basophils # 0.1 10*3/uL (0.0-0.2); Basophils % 0.5 % (0.0-0.8); Eosinophils # 0.3 10*3/uL (0.0-0.87); Eosinophils % 1.7 % (0.00-10.9); Hematocrit 22.8 VOL% (42.0-52.0); Hemoglobin 7.1 GM/DL (14.0-18.0); Immature Granulocytes % 12.5 %; Immature Granulocytes Absolute 1.96 #; Lymphocytes # 1.6 10*3/uL (1.4-4.0); Lymphocytes % 10.5 % (21.2-54.2); Mean Corpuscular HGB Conc 31.1 GM/DL (32-36); Mean Corpuscular Volume 103.2 FL (87-102); Mean Platelet Volume 9.5 FL (9.6-12.0); Monocytes % 6.3 % (1.7-12.7); NRBC # 0.06 10*3/uL; Neutrophils % 68.5 % (38.7-73.9); Platelet Count 340 T/CUMM (130-400); Red Blood Count 2.21 MC/CUMM (3.8-5.5); Red Cell Distribution Width 17.2 % (9.3-17.3); White Blood Count 15.6 T/CUMM (4-12)
[2019-03-14 05:58] LABS: INR 3.5
[2019-03-14 05:59] LABS: PT Patient Result 37.2 SECS (9.6-12.2)
[2019-03-14 07:01] LABS: Band Neutrophils 2 % (0-10); Eosinophils 1 % (0-10); Lymphocytes 9 % (20-55); Metamyelocytes 7 %; Myelocytes 2 %; Promyelocytes 3 %; Segmented Neutrophils 72 % (50-85); Total Cells Counted 100
[2019-03-14 07:02] LABS: Acanthocytes Few; Anisocytosis 2+; Atypical Lymphocytes Few; Macrocytosis 2+; Ovalocytes Few; Platelet Estimate Normal; Polychromasia Few
[2019-03-14] MEDS: INSULIN LISPRO 100 UNIT/ML SUBCUT SCH ×4 (08:16→20:44)
[2019-03-14] MEDS: METOPROLOL SUCCINATE XL 50 MG TABLET PO SCH (08:34)
[2019-03-14] MEDS: rOPINIRole 0.25 MG TABLET PO SCH ×3 (08:34→20:43)
[2019-03-14] MEDS: GENTAMICIN 0.1% CREAM 15 GM TUBE TOP SCH ×3 (08:35→20:43)
[2019-03-14] MEDS: DESITIN 4OZ/NYSTATIN 15 GRAM MIXTURE PASTE TOP SCH ×2 (08:35→20:44)
[2019-03-14 12:00] LABS: INR 3.8
[2019-03-14 12:02] LABS: PT Patient Result 40.6 SECS (9.6-12.2)
[2019-03-14] MEDS: GABAPENTIN 300 MG CAPSULE PO SCH (20:42)
[2019-03-14] MEDS: TAMSULOSIN 0.4 MG CAPSULE PO SCH (20:43)
[2019-03-14] MEDS: INSULIN GLARGINE 100 UNIT/ML SUBCUT SCH (20:43)
[2019-03-14] MEDS: MORPHINE NALTREXONE PO SCH (23:05)
[2019-03-15] MEDS: MEROPENEM 500 MG in SODIUM CHLORIDE 0.9% 100 ML IV SCH ×2 (01:00→13:50)
[2019-03-15] MEDS: MORPHINE 4 MG/1 ML VIAL IV PRN ×4 (02:24→19:45)
[2019-03-15 07:25] LABS: INR 3.9
[2019-03-15 07:26] LABS: Basophils # 0.1 10*3/uL (0.0-0.2); Basophils % 0.9 % (0.0-0.8); Eosinophils # 0.2 10*3/uL (0.0-0.87); Eosinophils % 1.5 % (0.00-10.9); Hematocrit 24.5 VOL% (42.0-52.0); Hemoglobin 7.5 GM/DL (14.0-18.0); Immature Granulocytes % 13.6 %; Immature Granulocytes Absolute 2.05 #; Lymphocytes # 1.9 10*3/uL (1.4-4.0); Lymphocytes % 12.6 % (21.2-54.2); Mean Corpuscular HGB Conc 30.6 GM/DL (32-36); Mean Corpuscular Volume 103.8 FL (87-102); Mean Platelet Volume 9.7 FL (9.6-12.0); NRBC # 0.06 10*3/uL; Neutrophils % 65.4 % (38.7-73.9); Platelet Count 364 T/CUMM (130-400); Red Blood Count 2.36 MC/CUMM (3.8-5.5); Red Cell Distribution Width 17.3 % (9.3-17.3); White Blood Count 15.1 T/CUMM (4-12)
[2019-03-15 07:27] LABS: PT Patient Result 42.1 SECS (9.6-12.2)
[2019-03-15 07:55] LABS: Band Neutrophils 4 % (0-10); Eosinophils 1 % (0-10); Hypochromasia 1+; Lymphocytes 11 % (20-55); Myelocytes 4 %; Platelet Estimate Adequate; Segmented Neutrophils 76 % (50-85); Total Cells Counted 100
[2019-03-15 07:56] LABS: Macrocytosis Slight
[2019-03-15] MEDS: INSULIN LISPRO 100 UNIT/ML SUBCUT SCH ×4 (08:56→20:54)
[2019-03-15] MEDS: IRON SUCROSE 200 MG in SODIUM CHLORIDE 0.9% 100 ML IV SCH (08:59)
[2019-03-15] MEDS: GENTAMICIN 0.1% CREAM 15 GM TUBE TOP SCH ×3 (09:00→20:54)
[2019-03-15] MEDS: METOPROLOL SUCCINATE XL 50 MG TABLET PO SCH (09:00)
[2019-03-15] MEDS: rOPINIRole 0.25 MG TABLET PO SCH ×3 (09:00→20:54)
[2019-03-15] MEDS: DESITIN 4OZ/NYSTATIN 15 GRAM MIXTURE PASTE TOP SCH ×2 (09:00→20:55)
[2019-03-15] MEDS: GABAPENTIN 300 MG CAPSULE PO SCH (20:54)
[2019-03-15] MEDS: TAMSULOSIN 0.4 MG CAPSULE PO SCH (20:54)
[2019-03-15] MEDS: INSULIN GLARGINE 100 UNIT/ML SUBCUT SCH (20:54)
[2019-03-15] MEDS: MORPHINE NALTREXONE PO SCH (20:55)
[2019-03-16] MEDS: MORPHINE 4 MG/1 ML VIAL IV PRN ×5 (01:15→20:22)
[2019-03-16] MEDS: MEROPENEM 500 MG in SODIUM CHLORIDE 0.9% 100 ML IV SCH ×2 (01:18→13:40)
[2019-03-16 04:23] LABS: Basophils # 0.1 10*3/uL (0.0-0.2); Basophils % 0.7 % (0.0-0.8); Eosinophils # 0.3 10*3/uL (0.0-0.87); Eosinophils % 1.8 % (0.00-10.9); Hematocrit 24.3 VOL% (42.0-52.0); Hemoglobin 7.5 GM/DL (14.0-18.0); Immature Granulocytes % 10.3 %; Immature Granulocytes Absolute 1.68 #; Lymphocytes # 1.8 10*3/uL (1.4-4.0); Mean Corpuscular HGB Conc 30.9 GM/DL (32-36); Mean Corpuscular Volume 103.4 FL (87-102); Mean Platelet Volume 9.6 FL (9.6-12.0); Monocytes % 5.6 % (1.7-12.7); NRBC # 0.06 10*3/uL; Neutrophils % 70.6 % (38.7-73.9); Platelet Count 379 T/CUMM (130-400); Red Blood Count 2.35 MC/CUMM (3.8-5.5); Red Cell Distribution Width 16.9 % (9.3-17.3); White Blood Count 16.2 T/CUMM (4-12)
[2019-03-16 04:44] LABS: INR 3.3
[2019-03-16 04:55] LABS: PT Patient Result 35.9 SECS (9.6-12.2)
[2019-03-16 04:57] LABS: Eosinophils 3 % (0-10); Lymphocytes 8 % (20-55); Metamyelocytes 2 %; Platelet Estimate Normal; Polychromasia Few; Segmented Neutrophils 85 % (50-85); Total Cells Counted 100
[2019-03-16 05:34] LABS: Calcium 8.2 MG/DL (8.5-10.1); Osmolality,Calculated 287.2 MOS/KG (273-304)
[2019-03-16 06:58] LABS: Calcium 7.8 MG/DL (8.5-10.1); Osmolality,Calculated 286.2 MOS/KG (273-304)
[2019-03-16] MEDS: INSULIN LISPRO 100 UNIT/ML SUBCUT SCH ×4 (07:41→23:01)
[2019-03-16] MEDS: rOPINIRole 0.25 MG TABLET PO SCH ×3 (09:43→20:21)
[2019-03-16] MEDS: IRON SUCROSE 200 MG in SODIUM CHLORIDE 0.9% 100 ML IV SCH (09:44)
[2019-03-16] MEDS: GENTAMICIN 0.1% CREAM 15 GM TUBE TOP SCH ×3 (09:44→20:23)
[2019-03-16] MEDS: DESITIN 4OZ/NYSTATIN 15 GRAM MIXTURE PASTE TOP SCH ×2 (09:44→20:23)
[2019-03-16] MEDS: METOPROLOL SUCCINATE XL 50 MG TABLET PO SCH (09:45)
[2019-03-16] MEDS: WARFARIN 5 MG TABLET PO SCH (17:27)
[2019-03-16] MEDS: TAMSULOSIN 0.4 MG CAPSULE PO SCH (20:21)
[2019-03-16] MEDS: GABAPENTIN 300 MG CAPSULE PO SCH (20:21)
[2019-03-16] MEDS: MORPHINE NALTREXONE PO SCH (20:23)
[2019-03-16] MEDS: INSULIN GLARGINE 100 UNIT/ML SUBCUT SCH (20:23)
[2019-03-17] MEDS: MEROPENEM 500 MG in SODIUM CHLORIDE 0.9% 100 ML IV SCH ×2 (01:04→14:07)
[2019-03-17] MEDS: MORPHINE 4 MG/1 ML VIAL IV PRN ×4 (05:11→20:53)
[2019-03-17 05:44] LABS: INR 2.7
[2019-03-17 05:50] LABS: PT Patient Result 29.5 SECS (9.6-12.2)
[2019-03-17 07:31] LABS: Calcium 7.9 MG/DL (8.5-10.1)
[2019-03-17 07:32] LABS: Basophils # 0.1 10*3/uL (0.0-0.2); Basophils % 0.4 % (0.0-0.8); Eosinophils # 0.3 10*3/uL (0.0-0.87); Eosinophils % 1.7 % (0.00-10.9); Hematocrit 24.9 VOL% (42.0-52.0); Hemoglobin 7.7 GM/DL (14.0-18.0); Immature Granulocytes % 8.5 %; Immature Granulocytes Absolute 1.44 #; Lymphocytes % 11.7 % (21.2-54.2); Mean Corpuscular HGB Conc 30.9 GM/DL (32-36); Mean Corpuscular Volume 103.3 FL (87-102); Mean Platelet Volume 9.5 FL (9.6-12.0); Monocytes % 5.1 % (1.7-12.7); NRBC # 0.02 10*3/uL; Neutrophils % 72.6 % (38.7-73.9); Platelet Count 389 T/CUMM (130-400); Red Blood Count 2.41 MC/CUMM (3.8-5.5); White Blood Count 16.9 T/CUMM (4-12)
[2019-03-17 07:55] LABS: Band Neutrophils 3 % (0-10); Hypochromasia 1+; Lymphocytes 16 % (20-55); Platelet Estimate Adequate; Segmented Neutrophils 75 % (50-85); Total Cells Counted 100
[2019-03-17] MEDS: INSULIN LISPRO 100 UNIT/ML SUBCUT SCH ×4 (07:55→20:50)
[2019-03-17 07:56] LABS: Macrocytosis Slight
[2019-03-17 07:57] LABS: Polychromasia Few
[2019-03-17] MEDS: rOPINIRole 0.25 MG TABLET PO SCH ×3 (09:51→20:50)
[2019-03-17] MEDS: METOPROLOL SUCCINATE XL 50 MG TABLET PO SCH (09:53)
[2019-03-17] MEDS: DESITIN 4OZ/NYSTATIN 15 GRAM MIXTURE PASTE TOP SCH ×2 (09:54→20:52)
[2019-03-17] MEDS: GENTAMICIN 0.1% CREAM 15 GM TUBE TOP SCH ×3 (09:54→20:51)
[2019-03-17] MEDS: IRON SUCROSE 200 MG in SODIUM CHLORIDE 0.9% 100 ML IV SCH (11:41)
[2019-03-17] MEDS ORDERED: EPOETIN ALFA 10,000 UNIT/1 ML VIAL IV ONE (12:59)
[2019-03-17] MEDS: WARFARIN 5 MG TABLET PO SCH (18:16)
[2019-03-17] MEDS: TAMSULOSIN 0.4 MG CAPSULE PO SCH (20:49)
[2019-03-17] MEDS: GABAPENTIN 300 MG CAPSULE PO SCH (20:49)
[2019-03-17] MEDS: MORPHINE NALTREXONE PO SCH (20:50)
[2019-03-17] MEDS: INSULIN GLARGINE 100 UNIT/ML SUBCUT SCH (20:52)
[2019-03-18] MEDS: MEROPENEM 500 MG in SODIUM CHLORIDE 0.9% 100 ML IV SCH ×2 (01:47→15:44)
[2019-03-18] MEDS: MORPHINE 4 MG/1 ML VIAL IV PRN ×5 (01:53→20:31)
[2019-03-18 06:07] LABS: Basophils # 0.1 10*3/uL (0.0-0.2); Basophils % 0.5 % (0.0-0.8); Eosinophils # 0.2 10*3/uL (0.0-0.87); Eosinophils % 1.4 % (0.00-10.9); Hematocrit 23.9 VOL% (42.0-52.0); Hemoglobin 7.5 GM/DL (14.0-18.0); Immature Granulocytes % 8.4 %; Lymphocytes # 1.7 10*3/uL (1.4-4.0); Lymphocytes % 11.1 % (21.2-54.2); Mean Corpuscular HGB Conc 31.4 GM/DL (32-36); Mean Corpuscular Volume 102.1 FL (87-102); Mean Platelet Volume 9.5 FL (9.6-12.0); Monocytes % 5.4 % (1.7-12.7); Neutrophils % 73.2 % (38.7-73.9); Platelet Count 351 T/CUMM (130-400); Red Blood Count 2.34 MC/CUMM (3.8-5.5); Red Cell Distribution Width 16.8 % (9.3-17.3); White Blood Count 15.5 T/CUMM (4-12)
[2019-03-18 06:16] LABS: INR 2.6
[2019-03-18 06:26] LABS: PT Patient Result 28.5 SECS (9.6-12.2)
[2019-03-18 06:30] LABS: Band Neutrophils 3 % (0-10); Eosinophils 1 % (0-10); Hypochromasia 1+; Lymphocytes 7 % (20-55); Macrocytosis Slight; Platelet Estimate Adequate; Segmented Neutrophils 87 % (50-85); Total Cells Counted 100
[2019-03-18 06:34] LABS: Calcium 7.8 MG/DL (8.5-10.1); Osmolality,Calculated 288.1 MOS/KG (273-304)
[2019-03-18] MEDS: INSULIN LISPRO 100 UNIT/ML SUBCUT SCH ×4 (07:30→20:30)
[2019-03-18] MEDS ORDERED: SODIUM CHLORIDE 0.9% 1,000 ML IV PRN (07:46)
[2019-03-18] MEDS ORDERED: METHEN/SOD PHOS/METH BLUE/HYOS TABLET PO PRN (08:22)
[2019-03-18] MEDS: rOPINIRole 0.25 MG TABLET PO SCH ×4 (09:00→20:29)
[2019-03-18] MEDS: METOPROLOL SUCCINATE XL 50 MG TABLET PO SCH ×2 (09:00→10:23)
[2019-03-18] MEDS: IRON SUCROSE 200 MG in SODIUM CHLORIDE 0.9% 100 ML IV SCH (09:26)
[2019-03-18] MEDS: DESITIN 4OZ/NYSTATIN 15 GRAM MIXTURE PASTE TOP SCH ×2 (10:23→20:30)
[2019-03-18] MEDS: GENTAMICIN 0.1% CREAM 15 GM TUBE TOP SCH ×3 (10:23→20:30)
[2019-03-18] MEDS ORDERED: BUPIVACAINE 0.25% /EPI 10 ML VIAL ONE (12:00)
[2019-03-18] MEDS ORDERED: FOSFOMYCIN 3 GM PACK PO ONE (12:00)
[2019-03-18] MEDS ORDERED: KETAMINE 500 MG/10 ML VIAL ONE (13:26)
[2019-03-18] MEDS ORDERED: ONDANSETRON 4 MG/2 ML VIAL ONE (13:27)
[2019-03-18] MEDS ORDERED: MIDAZOLAM 2 MG/2 ML VIAL ONE (13:27)
[2019-03-18] MEDS ORDERED: PHENYLEPHRINE 1 MG/10 ML SYRINGE IV ONE (13:27)
[2019-03-18] MEDS: WARFARIN 5 MG TABLET PO SCH (17:26)
[2019-03-18] MEDS: GABAPENTIN 300 MG CAPSULE PO SCH (20:29)
[2019-03-18] MEDS: TAMSULOSIN 0.4 MG CAPSULE PO SCH (20:29)
[2019-03-18] MEDS: MORPHINE NALTREXONE PO SCH (20:30)
[2019-03-18] MEDS: INSULIN GLARGINE 100 UNIT/ML SUBCUT SCH (20:31)
[2019-03-18 20:36] LABS: Hematocrit 27.2 VOL% (42.0-52.0); Hemoglobin 8.7 GM/DL (14.0-18.0)
[2019-03-19] MEDS: MORPHINE 4 MG/1 ML VIAL IV PRN ×4 (01:48→16:09)
[2019-03-19] MEDS: MEROPENEM 500 MG in SODIUM CHLORIDE 0.9% 100 ML IV SCH ×2 (01:48→13:47)
[2019-03-19] MEDS: INSULIN LISPRO 100 UNIT/ML SUBCUT SCH ×3 (08:36→16:14)
[2019-03-19] MEDS ORDERED: TAMSULOSIN 0.4 MG CAPSULE PO SCH (09:00)
[2019-03-19] MEDS: METOPROLOL SUCCINATE XL 50 MG TABLET PO SCH (09:24)
[2019-03-19] MEDS: rOPINIRole 0.25 MG TABLET PO SCH ×2 (09:25→16:01)
[2019-03-19] MEDS: IRON SUCROSE 200 MG in SODIUM CHLORIDE 0.9% 100 ML IV SCH (09:26)
[2019-03-19] MEDS: DESITIN 4OZ/NYSTATIN 15 GRAM MIXTURE PASTE TOP SCH (09:42)
[2019-03-19] MEDS: GENTAMICIN 0.1% CREAM 15 GM TUBE TOP SCH ×2 (09:42→16:01)
[2019-03-19 10:05] LABS: Basophils # 0.1 10*3/uL (0.0-0.2); Basophils % 0.7 % (0.0-0.8); Eosinophils # 0.3 10*3/uL (0.0-0.87); Eosinophils % 1.7 % (0.00-10.9); Hematocrit 28.8 VOL% (42.0-52.0); Hemoglobin 9.2 GM/DL (14.0-18.0); Immature Granulocytes % 6.3 %; Immature Granulocytes Absolute 0.95 #; Lymphocytes # 1.5 10*3/uL (1.4-4.0); Lymphocytes % 9.9 % (21.2-54.2); Mean Corpuscular HGB Conc 31.9 GM/DL (32-36); Mean Corpuscular Volume 102.5 FL (87-102); Monocytes % 4.9 % (1.7-12.7); Neutrophils % 76.5 % (38.7-73.9); Platelet Count 358 T/CUMM (130-400); Red Blood Count 2.81 MC/CUMM (3.8-5.5); Red Cell Distribution Width 16.3 % (9.3-17.3); White Blood Count 15.2 T/CUMM (4-12)
[2019-03-19 10:32] LABS: Eosinophils 3 % (0-10); Lymphocytes 10 % (20-55); Platelet Estimate Adequate; Segmented Neutrophils 82 % (50-85); Total Cells Counted 100
[2019-03-19 10:33] LABS: Hypochromasia 1+; Macrocytosis Slight; Ovalocytes Slight
[2019-03-19 10:35] LABS: Albumin 2.1 G/DL (3.4-5.0); Osmolality,Calculated 289.1 MOS/KG (273-304)
[2019-03-19 16:00] VITALS: BP 108/72
[2019-03-19] MEDS: WARFARIN 5 MG TABLET PO SCH (17:37)
== END 2019-03-19 19:10 | disposition home health service (06) | DRG 673 ==
LOC: EDUNIT# → EDBD → N.ED 14:00 → N.EDINP 18:09 → SUATTDRO 18:09 → N.3E 19:10
PROVIDERS: ADMIT Family Medicine; ATTEND Hospitalist

== ENCOUNTER 2019-11-27 05:57 | Inpatient (IN) ==
[2019-11-27] MEDS ORDERED: dilTIAZem Drip 125 MG/125 ML PREMIX IV ONE (06:47)
[2019-11-27] MEDS ORDERED: DILTIAZEM 25 MG/5 ML VIAL IV ONE ×2 (06:47→07:06)
[2019-11-27] MEDS ORDERED: DILTIAZEM 50 MG/10 ML VIAL IV STA ×2 (06:48→07:03)
[2019-11-27 06:56] LABS: Basophils # 0.1 10*3/uL (0.0-0.2); Basophils % 0.2 % (0.0-0.8); Hematocrit 36.7 VOL% (42.0-52.0); Hemoglobin 12.2 GM/DL (14.0-18.0); Immature Granulocytes % 2.3 %; Immature Granulocytes Absolute 0.64 #; Lymphocytes # 0.4 10*3/uL (1.4-4.0); Lymphocytes % 1.5 % (21.2-54.2); Mean Corpuscular HGB Conc 33.2 GM/DL (32-36); Mean Corpuscular Volume 116.9 FL (87-102); Mean Platelet Volume 10.4 FL (9.6-12.0); Monocytes % 3.8 % (1.7-12.7); Neutrophils % 92.2 % (38.7-73.9); Platelet Count 367 T/CUMM (130-400); Red Blood Count 3.14 MC/CUMM (3.8-5.5); Red Cell Distribution Width 14.5 % (9.3-17.3); White Blood Count 27.9 T/CUMM (4-12)
[2019-11-27] MEDS ORDERED: dilTIAZem Drip 125 MG/125 ML PREMIX IV SCH (07:00)
[2019-11-27 07:06] LABS: INR 4.4; Partial Thromboplastin Time 43.7 SECS (23.9-33.8)
[2019-11-27] MEDS ORDERED: MORPHINE 4 MG/1 ML VIAL IV STA (07:18)
[2019-11-27] MEDS ORDERED: NITROGLYCERIN SL 0.4 MG TABLET SL PRN (07:18)
[2019-11-27] MEDS ORDERED: cefTRIAXone 2,000 MG in SODIUM CHLORIDE 0.9% 100 ML IV ONE (07:19)
[2019-11-27] MEDS ORDERED: cefTRIAXone 1,000 MG VIAL ONE (07:28)
[2019-11-27 07:46] LABS: Albumin 2.1 G/DL (3.4-5.0); Bilirubin,Total 8.3 MG/DL (0.2-1.0); Calcium 8.1 MG/DL (8.5-10.1); Osmolality,Calculated 279.4 MOS/KG (273-304); Thyroid Stimulating Hormone 2.12 uIU/ml (0.358-3.74); Total Protein 8.1 G/DL (6.4-8.3)
[2019-11-27 08:10] LABS: Band Neutrophils 2 % (0-10); Lymphocytes 1 % (20-55); Macrocytosis 1+; Platelet Estimate Normal; Polychromasia Slight; Segmented Neutrophils 94 % (50-85); Total Cells Counted 100
[2019-11-27 08:11] LABS: Target Cells Slight
[2019-11-27] MEDS ORDERED: MORPHINE 4 MG/1 ML VIAL IV PRN (08:38)
[2019-11-27] MEDS ORDERED: LACTULOSE 20 GM/30 ML UDCUP PO PRN (08:38)
[2019-11-27] MEDS ORDERED: ONDANSETRON 4 MG/2 ML VIAL IV PRN (08:38)
[2019-11-27] MEDS ORDERED: GLUCAGON 1 MG VIAL IM PRN (08:38)
[2019-11-27] MEDS ORDERED: ALUM/MAG/SIMETH/LIDO VISC 1:1 30 ML BOTTLE PO PRN (08:38)
[2019-11-27] MEDS ORDERED: DOCUSATE SODIUM 100 MG CAPSULE PO PRN (08:38)
[2019-11-27] MEDS ORDERED: DEXTROSE 10% 250 ML BAG IV PRN (08:38)
[2019-11-27] MEDS ORDERED: HEPARIN DRIP 25,000 UNITS/500 ML PREMIX IV SCH (09:00)
[2019-11-27] MEDS ORDERED: PANTOPRAZOLE 40 MG TABLET PO SCH (09:00)
[2019-11-27] MEDS ORDERED: SODIUM CHLORIDE 0.9% 1,000 ML IV SCH (09:00)
[2019-11-27] MEDS ORDERED: PIPERACILLIN/TAZOBACTAM 3,375 MG in SODIUM CHLORIDE 0.9% 100 ML IV SCH (11:00)
[2019-11-27 11:18] VITALS: BP 100/71
[2019-11-27] MEDS ORDERED: INSULIN LISPRO 100 UNIT/ML SUBCUT SCH (11:30)
[2019-11-27 11:37] LABS: Hepatitis B Core IgM Quant 0.07 Index; Hepatitis B Surface Ag Quant 0.33 Index; Hepatitis B Surface Ag Result Negative (Negative); Hepatitis C Virus Ab Quant 0.19 Index; Hepatitis C Virus Ab Result Negative (Negative)
[2019-11-27 12:25] LABS: Apearance,Urine CLOUDY (Clear); Bacteria,Urine Many /HPF (Few); Bilirubin,Urine Negative (Negative); Blood, Urine Large mg/dL (Negative); Glucose,Urine (UA) Negative (Negative); Ketones,Urine Negative (Negative); Mucus,Urine Few /LPF (Occasional); Nitrite,Urine Negative (Negative); Protein,Urine 100 MG/DL; RBC,Urine 93 /HPF (0-4); Squamous Epithelial Cell,Urine Occasional /HPF (0-10); Urine Color Amber (Yellow); Urine Specific Gravity 1.012 (1.001-1.035); WBC,Urine 63 /HPF (0-6)
== END 2019-11-27 14:31 | disposition expired | DRG 309 ==
LOC: EDUNIT# → EDBD → N.ED 05:57 → N.EDINP 08:38 → N.TELEN 10:00 → N.ICU 14:18
PROVIDERS: ADMIT Internal Medicine; ATTEND Internal Medicine